=== PATIENT | male | born 1995 | race Caucasian/White ===

== ENCOUNTER 2025-02-08 00:58 | Inpatient (IN) | payer OTHER, SELFPAY ==
[2025-02-08 01:54] VITALS: BMI 31.1
--- NOTE | 2025-02-08 01:57 | HO.PSYEVENT ---
Event Note Date of Service: 02/08/25 Time Spent With Patient Time: Total time managing care of this patient today ____ minutes.
--- NOTE | 2025-02-08 05:47 | HO.PM.IMCN ---
History of Present Illness Data of Consult Service Date: 02/08/25 Requesting physician: Tana Mcdonnell Primary Care Provider: None Physician HPI Reason for consult: Medical H&P Patient is a 29-year-old male with no significant past medical history aside from bipolar, admitted to adult Psychiatry M5 for a manic episode with paranoia. It was reported by nursing staff that the [place] had been out of the country [place] 2 [place] and was kicked out, subsequently returning to [facility] and has been residing back and forth between his divorce parents houses. They have had difficulty with his mental health therefore he is now here for treatment. The patient has been very uncooperative with staff therefore medical history was difficult to obtain. He is currently denying any medical issues including chest pain, shortness of breath, nausea, vomiting, urinary symptoms or URI symptoms. Medical history was reviewed with patient, he reports no past medical history and does not take any medications. He also denies any smoking, alcohol or drug use. UTox from previous facility negative. Review of Systems Constitutional: Constitutional: Denies body ache(s), Denies chills, Denies fatigue, Denies fever(s), Denies headache(s) and Denies weakness Eyes: Eyes: Denies change in vision ENT: Denies headache(s), Denies nasal congestion and Denies sore throat Cardiovascular: Cardiovascular: Denies chest pain and Denies dyspnea Respiratory: Respiratory: Denies cough, Denies dyspnea and Denies wheezing Gastrointestinal: Gastrointestinal: Denies abdominal pain, Denies nausea and Denies vomiting Genitourinary: Genitourinary: Denies dysuria Musculoskeletal: Musculoskeletal: Denies myalgias Integumentary/Breasts: Skin/Breast: Denies rash Neurologic: Denies headache(s) and Denies weakness Psychiatric: Psychiatric: Reports as per HPI Endocrine: Endocrine: Denies fatigue Hematologic/Lymphatic: Hematologic/Lymphatic: Denies easy bleeding and Denies easy bruising Allergic/Immunologic: Allergic/Immunologic: Denies wheezing [facility] Medical History (Updated 02/08/25 @ 05:53 by Keke Hand PA-C) Class 1 obesity No pertinent past medical history Functional capacity: independent ambulation Social History Advance Directives: No Narrative: Patient denies smoking, alcohol or drug use Meds Allergies Allergy/AdvReac Type Severity Reaction Status Date / Time Penicillins Allergy Unknown Unknown Verified 02/08/25 01:52 lithium AdvReac Unknown Unknown Verified 02/08/25 01:52 Active Medications: Current Medications Acetaminophen (Acetaminophen 325 Mg Tablet) 650 mg PO Q6H PRN PRN Reason: Headache/Pain, Scale 1-10 Al Hydroxide/Mg Hydroxide (Magnesium Hydrox/Alum Hydrox 30 Ml Oral.Susp) 30 ml PO Q6H PRN PRN Reason: Heartburn/Nausea Hydroxyzine HCl (Hydroxyzine Hcl 25 Mg Tablet) 25 mg PO Q6H PRN PRN Reason: mild anxiety Lorazepam (Lorazepam 1 Mg Tablet) 1 mg PO Q6H PRN PRN Reason: severe anxiety/agitation Magnesium Hydroxide (Milk Of Magnesia 30 Ml Oral.Susp) 30 ml PO DAILY PRN PRN Reason: Constipation Nicotine Polacrilex (Nicotine Polacrilex 2 Mg Gum) 2 mg BUCCAL Q2H PRN PRN Reason: Nicotine Cravings Olanzapine (Olanzapine Odt 10 Mg Tab.Rapdis) 10 mg TRANSLINGU Q6H PRN PRN Reason: agitation Trazodone HCl (Trazodone Hcl 50 Mg Tablet) 50 mg PO BEDTIME MRX1 PRN PRN Reason: Insomnia Physical Exam Vital Signs and Narrative: Vital Signs: BMI result Body Mass Index 31.1 General: AOx3, no acute distress Resp: CTA bilaterally CVS: S1, S2, RRR GI: +BS, NT, no distention Skin: Warm, dry Neuro: Cranial nerves II-XII grossly intact bilaterally. Motor grossly intact bilaterally Extremities: No LE edema Psych: Appropriate affect Assessment and Plan (1) Medical clearance for psychiatric admission: Status: Acute (2) Class 1 obesity: Status: Acute Plan Patient is a 29-year-old male with no significant past medical history aside from bipolar, admitted to adult Psychiatry for a manic episode with paranoia. Patient's transfer for paperwork was reviewed, no significant past medical history, UTox negative. Patient has no current medical concerns. He has been uncooperative with nursing staff, history limited as patient is guarded. Mood disorder - plan per psych Class 1 obesity - BMI 31.1 - weight loss encouraged Thank you for allowing me to participate in the pt's care. Signing off. Please contact the medical team if any questions or concerns.
--- NOTE | 2025-02-08 06:06 | PC.ADMIT ---
A white, Yoruba-speaking, single, male, aged 29 years was [facility] 0115 as [facility] CV following referral from [facility] ED in [place]. Pt presented to ED on 02/07/25 with his father for evaluation due to concern for paranoid ideation and delusional thought content. [place] in the [place] 2 years returning on 01/20/24. Parents reported that pt stopped contacting family after about four months and they filed missing person reports. Pt was reported to be homeless for the past 6 moths. Pt had been living with mother, but pt had not been sleeping. Pt then was living with father. Pt has delusions that his parents are not his biological parents. Pt reportedly believes his actual mother is Ciara Awan. Pt has no medical issues or providers. Pt has a history of IPLOC for SI as a child. Pt's parents noted changes after pt's grandparents in 2020. Pt's parents are considering seeking guardianship. UTOX was negative and pt does not appear to be withdrawing from Etoh or substances. Pt was agitated and uncooperative upon arrival. Pt declined VS assessment and declined to allow for changeover in to [facility] or allow for skin assessment. Pt insisted that staff open the door and allow him to leave as holding him against his will was unlawful. Pt remained insistent that he be allowed to leave the hospital. Pt was offered a 3-day notice and also offered snacks and beverages which pt declined. Security was called at 0145 and they remained until 0215. OnCall provider was informed and orders were obtained for PO and IM medications. Pt did begin to settle allowing for removal of sneakers with laces and belt. Pt allowed pockets to bechecked by security, but pt retained his wallet. Pt remained sitting on the floor by the main entrance to the unit, but went to kitchen around 0330. Pt napped in kitchen for about an hour before going to his room for the first time and laying in his bed at 0630. Pt was seen by hospitalist, but declined to participate in admission.
[2025-02-08 06:58] VITALS: BP 146/72; PULSE 105; TEMP 36.3; O2SAT 100
[2025-02-08 08:12] VITALS: BP 140/90; PULSE 116; RESP 18; TEMP 37.1; O2SAT 98
--- NOTE | 2025-02-08 08:21 | HO.PSYADMNOT ---
HPI Date of Service: 02/08/25 Chief Complaint: Bipolar disorder, unspecified Sources of Information: patient interviewed, chart reviewed and crisis/core team assessment reviewed Additional Sources of Information: [facility] ED in [place] paperwork HPI Subjective Notes: Santamaria Warning and Conditional Voluntary Narrative: patient overall pretty guarded and evasive during interview today. Most of history based off documentation from [facility] ED in [place], for patient was transferred as a direct admission to [facility]. This paperwork included lots of collateral information from patient's mom. Overall this notes that patient was in the [place] for 2 years and [place] the states on 01/19/2025. He had claimed asylum in the [place] and was staying in a hotel and had cut off all family contact for the best part of 18 months. Was reportedly removed from the [place] stay with his mom 1st., up all night, unusual beliefs and erratic behavior, always had his bags packed like he was going somewhere and then stayed with his father for a short period. does not believe his biological parents are his parents and calls him by the 1st name i.e. Dutsin and Nataliia. Believes that Ciara Awan from the while family is his mother. They do note that mental state really decompensated after grandmother's passing in 2020 and grandfather approximately 6 months later. 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 Two inpatient episodes when younger with suicidal ideation. Labs unremarkable. Tox screen negative Discussed legal status. Signed a CV on admission. Ensured understanding of three-day notice and santamaria warning, should he pursue same. Past Psychiatric History: Minimal history from patient. He denies all symptoms any past history of mental health issues over being on medications or in hospital. As per parents/collateral documentation: They do note that mental state really decompensated after grandmother's passing in 2020 and grandfather approximately 6 months later. 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 Two inpatient episodes when younger with suicidal ideation. Medical Evaluation Reviewed: Hospitalist Vernellal Pending [facility] Medical History (Updated 02/08/25 @ 16:47 by Hermes Becerra MD) Class 1 obesity No pertinent past medical history Social History: largely limited history. 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 Recently tried to claim asylum in the [place] for 2 years and [place]25. Has been staying with biological parents since then, but also claims they are not his parents in the context of delusional beliefs. Single. No children. Denied legal issues. Substance History: Denied. Tox screen negative. Diagnostics Vital Signs (24Hr): Vital Signs - 24 hr 02/08/25 06:58 02/08/25 08:12 Temperature 97.4 F 98.8 F Pulse Rate 105 H 116 H Respiratory Rate 18 Blood Pressure 146/72 H 140/90 H Pulse Oximetry 100 98 Oxygen Delivery Method Room Air Room Air BMI result Body Mass Index 31.1 Meds/Allergies Meds Home Medications ?Medication ?Instructions ?Recorded ?Confirmed ?Type No Known Home Meds 02/08/25 02/08/25 History Allergies Allergies Allergy/AdvReac Type Severity Reaction Status Date / Time Penicillins Allergy Unknown Unknown Verified 02/08/25 01:52 lithium AdvReac Unknown Unknown Verified 02/08/25 01:52 Mental Status Exam Mental Status Exam Narrative: casually dressed. Minimal engagement. Self-care fair. Evasive and guarded. Is alert and oriented. Denies depression, SI HI. Does appear paranoid. Denies hallucinations. Insight and judgment poor Assessment & Plan Assessment & Plan (1) Psychosis: Status: Acute Code(s): F29 - Unspecified psychosis not due to a substance or known physiological condition Plan presents with clear delusional symptoms with unclear timeframe. No overt mood symptoms. No substance issues of note . [place] asylum [place] 2 years in the [place]. Delusional beliefs that Ciara Awan from the [facility] is his biological mother. Declining all medications or treatment . Will continue to try and establish rapport with ongoing evaluation and treatment plan accordingly. Patient educated on: diagnosis and medication risk/benefits Informed Consent: further education needed Reason for continued inpatient stay Substantial Risk for: inability to function Statement Statement: I have reviewed the history and physical and performed a pertinent examination on my patient. No changes have occurred unless specified. If the History and Physical was not performed prior to admission, the Hospitalist's service will be consulted for completing the admission physical. Time Spent With Patient Time: Total time managing care of this patient today ____ minutes.
[2025-02-08 20:00] VITALS: BP 111/53; PULSE 66; RESP 16; TEMP 36.8; O2SAT 97
--- NOTE | 2025-02-09 07:29 | P.PNPSI_ITS ---
Subjective Subjective Date of Service: 02/09/25 Reason For Visit: Bipolar disorder, unspecified Interim History: Met with pt. Discussed with nursing. More engaged but still guarded. Medical Scientific Liaison asked about Ciara Awan from the [facility] statements I said that so I could get a DNA test - would not answer directly when asked if he belived she was his mother. Still doesnt belive biological parents are his we dont look alike . Not willing to expand. Adamnt he does not need medications and denies depression, SI, HI etc.. Sleeping ok. IN milieu a little more. Eating ok. Attending Groups: No Review of Systems Acute medical concerns: No Review of Systems Review of Systems unremarkable Mental Status Exam Mental Status Exam Narrative: casually dressed. Minimal engagement. Self-care fair. Evasive and guarded. Is alert and oriented. Denies depression, SI HI. Does appear paranoid. Denies hallucinations. Insight and judgment poor Diagnostics Vital Signs (24Hr): Vital Signs - 24 hr 02/08/25 08:12 02/08/25 20:00 Temperature 98.8 F 98.2 F Pulse Rate 116 H 66 Respiratory Rate 18 16 Blood Pressure 140/90 H 111/53 L Pulse Oximetry 98 97 Oxygen Delivery Method Room Air Room Air BMI result Body Mass Index 31.1 Labs 02/09/25 07:18 Medications Medications Current Medications Acetaminophen (Acetaminophen 325 Mg Tablet) 650 mg PO Q6H PRN PRN Reason: Headache/Pain, Scale 1-10 Al Hydroxide/Mg Hydroxide (Magnesium Hydrox/Alum Hydrox 30 Ml Oral.Susp) 30 ml PO Q6H PRN PRN Reason: Heartburn/Nausea Hydroxyzine HCl (Hydroxyzine Hcl 25 Mg Tablet) 25 mg PO Q6H PRN PRN Reason: mild anxiety Lorazepam (Lorazepam 1 Mg Tablet) 1 mg PO Q6H PRN PRN Reason: severe anxiety/agitation Magnesium Hydroxide (Milk Of Magnesia 30 Ml Oral.Susp) 30 ml PO DAILY PRN PRN Reason: Constipation Nicotine Polacrilex (Nicotine Polacrilex 2 Mg Gum) 2 mg BUCCAL Q2H PRN PRN Reason: Nicotine Cravings Olanzapine (Olanzapine Odt 10 Mg Tab.Rapdis) 10 mg TRANSLINGU Q6H PRN PRN Reason: agitation Trazodone HCl (Trazodone Hcl 50 Mg Tablet) 50 mg PO BEDTIME MRX1 PRN PRN Reason: Insomnia Allergies Allergies Allergy/AdvReac Type Severity Reaction Status Date / Time Penicillins Allergy Unknown Unknown Verified 02/08/25 01:52 lithium AdvReac Unknown Unknown Verified 02/08/25 01:52 Assessment & Plan Assessment & Plan (1) Psychosis: Status: Acute Code(s): F29 - Unspecified psychosis not due to a substance or known physiological condition Plan presents with clear delusional symptoms with unclear timeframe. No overt mood symptoms. No substance issues of note . [place] asylum [place] 2 years in the [place]. Delusional beliefs that Ciara Awan from the [facility] [employer] is his biological mother. Declining all medications or treatment . Will continue to try and establish rapport with ongoing evaluation and treatment plan accordingly. 02/09:establish rapport and educate as much as patient will engage and treatment plan accorindgly Reason for continued inpatient stay Substantial Risk for: inability to function Time Spent With Patient Time: Total time managing care of this patient today ____ minutes.
[2025-02-09 08:11] LABS: Albumin Level 4.5 g/dL (3.5-5.0); Alkaline Phosphatase 82 U/L (39-117); Anion Gap 11 (12-20); Aspartate Amino Transferase 35 U/L (5-37); Blood Urea Nitrogen 19 mg/dL (9-16); Calcium 9.9 mg/dL (8.4-10.2); Carbon Dioxide 29 mmol/L (22-29); Chloride 106 mmol/L (96-108); Cholesterol 359 mg/dL (<200); Creatinine Clr Calc Pharmacy 137.6; Estimated Glomerular Filt Rate > 60; HDL Cholesterol 47 mg/dL (>40); Potassium 4.4 mmol/L (3.3-5.1); Sodium 142 mmol/L (135-145); Total Protein 7.3 g/dL (6.5-8.0); Triglycerides 167 mg/dL (<150)
[2025-02-09 08:14] LABS: Hemoglobin A1C 130.0748 umol/L; Total Hemoglobin (HGBA1C) 4412.2296 umol/L
[2025-02-09 08:21] LABS: Thyroid Stimulating Hormone 2.35 uIU/mL (0.32-4.0)
[2025-02-09 08:27] LABS: Alanine Aminotransferase 116 U/L (0-40)
[2025-02-09 08:38] VITALS: BP 119/60; PULSE 70; RESP 18; TEMP 36.1; O2SAT 97
[2025-02-09 20:00] VITALS: BP 132/71; PULSE 98; TEMP 36.3; O2SAT 97
[2025-02-10 08:00] VITALS: BP 126/69; PULSE 73; RESP 16; TEMP 36.4; O2SAT 98
--- NOTE | 2025-02-10 11:04 | P.PNPSI_ITS ---
Subjective Subjective Date of Service: 02/10/25 Reason For Visit: Bipolar disorder, unspecified Interim History: Met with pt. Discussed with nursing. More engaged but still guarded. Minimal engagement and declined wanting to speak today but eager for discharge and still adamnt he does not need medications and denies depression, SI, HI etc.. Sleeping ok. Eating ok. Medication Compliance: No Attending Groups: No Review of Systems Acute medical concerns: No Review of Systems Review of Systems unremarkable Mental Status Exam Mental Status Exam Narrative: casually dressed. Minimal engagement. Self-care fair. Evasive and guarded. Is alert and oriented. Denies depression, SI HI. Does appear paranoid. Denies hallucinations. Insight and judgment poor Diagnostics Vital Signs (24Hr): Vital Signs - 24 hr 02/09/25 20:00 02/10/25 08:00 Temperature 97.4 F 97.5 F Pulse Rate 98 73 Respiratory Rate 16 Blood Pressure 132/71 126/69 Pulse Oximetry 97 98 Oxygen Delivery Method Room Air BMI result Body Mass Index 31.1 Labs 02/09/25 07:18 Labs: Laboratory Results - last 48 hr 02/09/25 02/09/25 07:17 07:18 Sodium 142 Potassium 4.4 Chloride 106 Carbon Dioxide 29 Anion Gap 11 L BUN 19 H Creatinine 0.84 Estim Creat Clear Calc 137.6 Estimated GFR > 60 Random Glucose 90 Estimat Average Glucose 91 Hemoglobin A1c % 4.8 Calcium 9.9 Total Bilirubin 0.7 AST 35 ALT 116 H Alkaline Phosphatase 82 Total Protein 7.3 Albumin 4.5 Triglycerides 167 H Cholesterol 359 H LDL Cholesterol, Calc 279 H HDL Cholesterol 47 TSH 2.35 Medications Medications Current Medications Acetaminophen (Acetaminophen 325 Mg Tablet) 650 mg PO Q6H PRN PRN Reason: Headache/Pain, Scale 1-10 Al Hydroxide/Mg Hydroxide (Magnesium Hydrox/Alum Hydrox 30 Ml Oral.Susp) 30 ml PO Q6H PRN PRN Reason: Heartburn/Nausea Hydroxyzine HCl (Hydroxyzine Hcl 25 Mg Tablet) 25 mg PO Q6H PRN PRN Reason: mild anxiety Lorazepam (Lorazepam 1 Mg Tablet) 1 mg PO Q6H PRN PRN Reason: severe anxiety/agitation Magnesium Hydroxide (Milk Of Magnesia 30 Ml Oral.Susp) 30 ml PO DAILY PRN PRN Reason: Constipation Nicotine Polacrilex (Nicotine Polacrilex 2 Mg Gum) 2 mg BUCCAL Q2H PRN PRN Reason: Nicotine Cravings Olanzapine (Olanzapine Odt 10 Mg Tab.Rapdis) 10 mg TRANSLINGU Q6H PRN PRN Reason: agitation Trazodone HCl (Trazodone Hcl 50 Mg Tablet) 50 mg PO BEDTIME MRX1 PRN PRN Reason: Insomnia Allergies Allergies Allergy/AdvReac Type Severity Reaction Status Date / Time Penicillins Allergy Unknown Unknown Verified 02/08/25 01:52 lithium AdvReac Unknown Unknown Verified 02/08/25 01:52 Assessment & Plan Assessment & Plan (1) Psychosis: Status: Acute Code(s): F29 - Unspecified psychosis not due to a substance or known physiological condition Plan presents with clear delusional symptoms with unclear timeframe. No overt mood symptoms. No substance issues of note . [place] asylum [place] 2 years in the [place]. Delusional beliefs that Ciara Awan from [facility] is his biological mother. Declining all medications or treatment . Will continue to try and establish rapport with ongoing evaluation and treatment plan accordingly. 7/5:establish rapport and educate as much as patient will engage and treatment plan accorindgly. Educated ref 3 day notice process and Santamaria warning should they pursue same. 7/6: Still refusing medications being ordered. Team might consider revoking CV. Reason for continued inpatient stay Substantial Risk for: inability to function Time Spent With Patient Time: Total time managing care of this patient today ____ minutes.
[2025-02-10 20:00] VITALS: BP 145/72; PULSE 79; RESP 16; TEMP 36.4; O2SAT 98
[2025-02-11 08:00] VITALS: BP 115/76; PULSE 73; RESP 16; TEMP 36.8; O2SAT 97
[2025-02-11 08:32] LABS: Vitamin B12 421 pg/mL (200-900)
--- NOTE | 2025-02-11 09:38 | P.PNPSI_ITS ---
Subjective Subjective Date of Service: 02/11/25 Reason For Visit: Bipolar disorder, unspecified Subjective Notes: Santamaria Warning (gave 02/11/25) and 3 Day Interim History: met with patient; discussed with team; reviewed chart; santamaria warning given residential mortgage underwriter asked hx: pt vague, guarded. He says he went to [place] was [place]...from [place]... He says a Federal napper grinder told me I had to be out of here [[facility]] he then said that a helicopter pilot instructor came up to him and told him. Patient says that he was living in the in a detention and then ended up living in a tent. He says that he decided to come home on his own so he went to the airport... He then said that a ticket was bought for him by Nataliia and/or Red and/or Dustin, Nataliia being the woman Who says she is my mother.. And Dustin the man who says he is my father... Red is Nataliia's . Patient says that for years he has been concerned that Nataliia is not his biological mother; he says he has asked for a DNA test but it has not been done. Patient reports that Red picked him up from the airport, took him back to [place]; patient said I was walking around... And minding his own business and he does not know why he was brought to the hospital; he says that Dustin tricked him. Patient expressed consternation when residential mortgage underwriter asked his belief about Ciara Awan being his mother... And asked if some agency had contacted this residential mortgage underwriter about it. He said he was asking for DNA test regarding Ciara Awan but then said no he does not believe Ciara Awan is his mother end of story and did not want to talk about this anymore. Patient denies any drug or alcohol use; denies any AVH; denies any SI or HI; denies any depression Patient gave permission for team to contact his family, Red Chan Melissa and gave phone numbers Mental Status Exam Mental Status Exam Narrative: Pt is alert and oriented; behavior is guarded, superficially cooperative, calm; patient is not in distress; dressed in casual attire, unkempt; mood is described as good though affect constricted; eye contact appropriate; Speech is normal rate, volume and prosody and not pressured; no psychomotor agitation/retardation present; thought process is organized and goal directed; Thought content is on wrong fully hospitalized; paranoid delusional thoughts; denies any SI/HI. Denies AVH though patient seems internally preoccupied Patients insight and judgment impaired. Diagnostics Vital Signs (24Hr): Vital Signs - 24 hr 02/10/25 20:00 Temperature 97.6 F Pulse Rate 79 Respiratory Rate 16 Blood Pressure 145/72 H Pulse Oximetry 98 Oxygen Delivery Method Room Air BMI result Body Mass Index 31.1 Labs 02/09/25 07:18 Labs: Laboratory Results - last 48 hr 02/11/25 07:38 Vitamin B12 421 Medications Medications Current Medications Acetaminophen (Acetaminophen 325 Mg Tablet) 650 mg PO Q6H PRN PRN Reason: Headache/Pain, Scale 1-10 Al Hydroxide/Mg Hydroxide (Magnesium Hydrox/Alum Hydrox 30 Ml Oral.Susp) 30 ml PO Q6H PRN PRN Reason: Heartburn/Nausea Hydroxyzine HCl (Hydroxyzine Hcl 25 Mg Tablet) 25 mg PO Q6H PRN PRN Reason: mild anxiety Lorazepam (Lorazepam 1 Mg Tablet) 1 mg PO Q6H PRN PRN Reason: severe anxiety/agitation Magnesium Hydroxide (Milk Of Magnesia 30 Ml Oral.Susp) 30 ml PO DAILY PRN PRN Reason: Constipation Nicotine Polacrilex (Nicotine Polacrilex 2 Mg Gum) 2 mg BUCCAL Q2H PRN PRN Reason: Nicotine Cravings Olanzapine (Olanzapine Odt 10 Mg Tab.Rapdis) 10 mg TRANSLINGU Q6H PRN PRN Reason: agitation Trazodone HCl (Trazodone Hcl 50 Mg Tablet) 50 mg PO BEDTIME MRX1 PRN PRN Reason: Insomnia Allergies Allergies Allergy/AdvReac Type Severity Reaction Status Date / Time Penicillins Allergy Unknown Unknown Verified 02/08/25 01:52 lithium AdvReac Unknown Unknown Verified 02/08/25 01:52 Assessment & Plan Assessment & Plan (1) Psychosis: Status: Acute Code(s): F29 - Unspecified psychosis not due to a substance or known physiological condition Plan HPI: patient overall pretty guarded and evasive during interview today. Most of history based off documentation from [facility] ED in [place], for patient was transferred as a direct admission to [facility]. This paperwork included lots of collateral information from patient's mom. Overall this notes that patient was in the [place] for 2 years and returned to the states on 01/19/2025. He had [place] asylum in [place] and was staying in a hotel and had cut off all family contact for the best part of 18 months. Was reportedly removed from the [place] stay with his mom 1st., up all night, unusual beliefs and erratic behavior, always had his bags packed like he was going somewhere and then stayed with his father for a short period. does not believe his biological parents are his parents and calls him by the 1st name i.e. Dustin and Nataliia. Believes that Ciara Awan from the while family is his mother. They do note that mental state really decompensated after grandmother's passing in 2020 and grandfather approximately 6 months later. 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 Two inpatient episodes when younger with suicidal ideation. Formulation: presents with clear delusional symptoms with unclear timeframe. No overt mood symptoms. No substance issues of note . [place] asylum [place] 2 years in the [place]. Delusional beliefs that Ciara Awan from the royal family is his biological mother. Declining all medications or treatment . Will continue to try and establish rapport with ongoing evaluation and treatment plan accordingly. 02/09:establish rapport and educate as much as patient will engage and treatment plan accorindgly. Educated ref 3 day notice process and Santamaria warning should they pursue same. 02/10: Still refusing medications being ordered. Team might consider revoking CV. 02/11 residential mortgage underwriter asked hx: pt vague, guarded. He says he went to because [place] was [place]from [place] He says a Federal napper grinder told me I had to be out of here [[place]] he then said that a helicopter pilot instructor came up to him and told him. Patient says that he [place] living [place] the [place] in a detention and then ended up living in a tent. He says that he decided to come home on his own so he went to the airport... He then said that a ticket was bought for him by Nataliia and/or Red and/or Dustin, Nataliia being the woman Who says she is my mother.. And Dustin the man who says he is my father... Red is Nataliia's . Patient says that for years he has been concerned that Nataliia is not his biological mother; he says he has asked for a DNA test but it has not been done. Patient reports that Red picked him up from the airport, took him back to [place]; patient said I was walking around... And minding his own business and he does not know why he was brought to the hospital; he says that Dustin tricked him. Patient expressed consternation when residential mortgage underwriter asked his belief about Ciara Awan being his mother... And asked if some agency had contacted this residential mortgage underwriter about it. He said he was asking for DNA test regarding Ciara Awan but then said no he does not believe Ciara Awan is his mother end of story and did not want to talk about this anymore. Patient does not want to be in the hospital; discussed 3 day notice which he went and signed; does not feel the need or want any medication Patient denies any drug or alcohol use; denies any AVH; denies any SI or HI; denies any depression Patient gave permission for team to contact his family, Red ChanNataliia and gave phone numbers Plan: 3 day Q 15 minute checks Patient does not want medication Patient has given permission for team to contact family for collateral Patient educated on: diagnosis Informed Consent: does not understand Reason for continued inpatient stay Substantial Risk for: inability to function Time Spent With Patient Time: Total time managing care of this patient today ____ minutes.
[2025-02-11 20:00] VITALS: BP 130/69; PULSE 95; RESP 16; TEMP 36.7; O2SAT 98
[2025-02-12 07:57] VITALS: BP 122/74; PULSE 68; TEMP 36.6; O2SAT 97
--- NOTE | 2025-02-12 11:38 | P.PNPSI_ITS ---
Subjective Subjective Date of Service: 02/12/25 Reason For Visit: Bipolar disorder, unspecified Interim History: met with patient; discussed with team; talked with patient's mother, Nataliia Patient remains guarded; staff reports did not sleep much last night or the night before though patient says he has been sleeping fine. Lumber Marker asked about activities while in [place]. Patient said he mostly just stayed in the half-way where he was staying and did not do any site-seeing or leave the vicinity much; said he sometimes helped load at a grocery store for food. Says he claimed asylum and there were government workers that would check on him, make sure he had food. Lumber Marker tried to discuss details regarding coming back to the states but patient would not discuss. Says he is glad to be back in that it states; has nowhere else to go for now so plans to go back to Nataliia's house; otherwise he said he would like to move back down self. Patient with irritable edge saying he has no idea why he is hospitalized; technical proposal writer offered to explain but patient said he did not want technical proposal writer to because I do not think all like your response... Eventually however he did ask again why he was hospitalized and as technical proposal writer started to explain patient said are we done and that he no longer wanted to talk and left the room Lumber Marker and social science analyst spoke with Nataliia, patient's mother: Mental Status Exam Mental Status Exam Narrative: Pt is alert and oriented; behavior is guarded, superficially cooperative, calm; patient is not in distress; dressed in casual attire, unkempt; mood is described as good though affect constricted; eye contact appropriate; Speech is normal rate, volume and prosody and not pressured; no psychomotor agitation/retardation present; thought process is organized and goal directed; Thought content is on wrong fully hospitalized; paranoid delusional thoughts; denies any SI/HI. Denies AVH though patient seems internally preoccupied Patients insight and judgment impaired. Diagnostics Vital Signs (24Hr): Vital Signs - 24 hr 02/11/25 20:00 02/12/25 07:57 Temperature 98.1 F 97.9 F Pulse Rate 95 68 Respiratory Rate 16 Blood Pressure 130/69 122/74 Pulse Oximetry 98 97 Oxygen Delivery Method Room Air Room Air BMI result Body Mass Index 31.1 Labs 02/09/25 07:18 Labs: Laboratory Results - last 48 hr 02/11/25 07:38 Vitamin B12 421 Medications Medications Current Medications Acetaminophen (Acetaminophen 325 Mg Tablet) 650 mg PO Q6H PRN PRN Reason: Headache/Pain, Scale 1-10 Al Hydroxide/Mg Hydroxide (Magnesium Hydrox/Alum Hydrox 30 Ml Oral.Susp) 30 ml PO Q6H PRN PRN Reason: Heartburn/Nausea Hydroxyzine HCl (Hydroxyzine Hcl 25 Mg Tablet) 25 mg PO Q6H PRN PRN Reason: mild anxiety Lorazepam (Lorazepam 1 Mg Tablet) 1 mg PO Q6H PRN PRN Reason: severe anxiety/agitation Magnesium Hydroxide (Milk Of Magnesia 30 Ml Oral.Susp) 30 ml PO DAILY PRN PRN Reason: Constipation Nicotine Polacrilex (Nicotine Polacrilex 2 Mg Gum) 2 mg BUCCAL Q2H PRN PRN Reason: Nicotine Cravings Olanzapine (Olanzapine Odt 10 Mg Tab.Rapdis) 10 mg TRANSLINGU Q6H PRN PRN Reason: agitation Trazodone HCl (Trazodone Hcl 50 Mg Tablet) 50 mg PO BEDTIME MRX1 PRN PRN Reason: Insomnia Allergies Allergies Allergy/AdvReac Type Severity Reaction Status Date / Time Penicillins Allergy Unknown Unknown Verified 02/08/25 01:52 lithium AdvReac Unknown Unknown Verified 02/08/25 01:52 Assessment & Plan Assessment & Plan (1) Psychosis: Status: Acute Code(s): F29 - Unspecified psychosis not due to a substance or known physiological condition Plan HPI: patient overall pretty guarded and evasive during interview today. Most of history based off documentation from [facility] ED in [place], for patient was transferred as a direct admission to [facility]. This paperwork included lots of collateral information from patient's mom. Overall this notes that patient was in the [place] for 2 years and returned to the states on 01/19/2025. [place] and was staying in a hotel and had cut off all family contact for the best part of 18 months. Was reportedly removed from the [place] stay with his mom 1st., up all night, unusual beliefs and erratic behavior, always had his bags packed like he was going somewhere and then stayed with his father for a short period. does not believe his biological parents are his parents and calls him by the 1st name i.e. Dustin and Nataliia. Believes that Ciara Awan from the while family is his mother. They do note that mental state really decompensated after grandmother's passing in 2020 and grandfather approximately 6 months later. 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 Two inpatient episodes when younger with suicidal ideation. Formulation: presents with clear delusional symptoms with unclear timeframe. No overt mood symptoms. No substance issues of note . [place] asylum [place] 2 years in the [place]. Delusional beliefs that Ciara Awan from the royal family is his biological mother. Declining all medications or treatment . Will continue to try and establish rapport with ongoing evaluation and treatment plan accordingly. 02/09:establish rapport and educate as much as patient will engage and treatment plan accorindgly. Educated ref 3 day notice process and Santamaria warning should they pursue same. 02/10: Still refusing medications being ordered. Team might consider revoking CV. 02/11 technical proposal writer asked hx: pt vague, guarded. He says he went to because [place] was [place]from [place] He says a Federal payroll secretary told me I had to be out of here [[facility]] he then said that a copy holder came up to him and told him. Patient says that he was living in the in a half-way and then ended up living in a tent. He says that he decided to come home on his own so he went to the airport... He then said that a ticket was bought for him by Nataliia and/or Red and/or Dustin, Nataliia being the woman Who says she is my mother.. And Dustin the man who says he is my father... Red is Nataliia's . Patient says that for years he has been concerned that Nataliia is not his biological mother; he says he has asked for a DNA test but it has not been done. Patient reports that Red picked him up from the airport, took him back to [place]; patient said I was walking around... And minding his own business and he does not know why he was brought to the hospital; he says that Dustin tricked him. Patient expressed consternation when technical proposal writer asked his belief about Ciara Awan being his mother... And asked if some agency had contacted this technical proposal writer about it. He said he was asking for DNA test regarding Ciara Awan but then said no he does not believe Ciara Awan is his mother end of story and did not want to talk about this anymore. Patient does not want to be in the hospital; discussed 3 day notice which he went and signed; does not feel the need or want any medication Patient denies any drug or alcohol use; denies any AVH; denies any SI or HI; denies any depression Patient gave permission for team to contact his family, DustinRed Nataliia and gave phone numbers 02/12 Patient remains guarded; staff reports did not sleep much last night or the night before though patient says he has been sleeping fine. Lumber Marker asked about activities while in [place]. Patient said he mostly just stayed in the half-way where he was staying and did not do any site-seeing or leave the vicinity much; said he sometimes helped load at a grocery store for food. Says he claimed asylum and there were government workers that would check on him, make sure he had food. Lumber Marker tried to discuss details regarding coming back to the states but patient would not discuss. Says he is glad to be back in that it states; has nowhere else to go for now so plans to go back to Nataliia's house; otherwise he said he would like to move back down self. Patient with irritable edge saying he has no idea why he is hospitalized; technical proposal writer offered to explain but patient said he did not want technical proposal writer to because I do not think all like your response... Eventually however he did ask again why he was hospitalized and as technical proposal writer started to explain patient said are we done and that he no longer wanted to talk and left the room Collateral report obtained from patient's mother (see below): Plan: 3 day Q 15 minute checks Patient does not want medication Patient has given permission for team to contact family for collateral Collateral: -dx w/ bipolar as child and on meds from 4 years old until 17 yo mother reports that her around patient living in [place]; patient called his mother and said people after him, saying he's a pediophile, that someone has a gun... Saying i need to leave [place]. Mom went down to get and brought him back home. However once he was home he called the police and said his mom was poisoning him w/ food and police showed up...went for psych admission and was dx with delusiuinal paranoanoia; patient did not take medications post discharge or follow up and thus forward maintain that Nataliia was not his real mother. About a year and a half ago Patient told his mother he wanted to go to the [place] to see whom he believed were his real parents, Ciara Awan and Prince Leblanc. Patient left; when he got there he claimed asylum and so was given some resources. There was some contact at 1st but soon there was no contact at all for about a year and patient's mother filed a missing person report with the [place] embassy there. Recently delegates from the [place] contacted her and deported him back to the [place] states. Her Red picked him up and brought him back home to [place]. While he was home the past weeks he was pacing the house, not sleeping and eating nonstop, eating literally all the groceries that she bought in 1 sitting, taking 5 showers a day and continually saying you are not my mother... Patient also expressed anger at her because his car was no longer. Since he was gone and not making car payments it was repossessed however he did not accept this explanation and accused her of scratching his car. Patient insisted that he had money in the bank though he had none. His father Dustin came to get him and took him to the hospital. Med trials (mother is not sure other than following: zoloft: tried to jump out of moving vehicle [place]: Severe Adverse effect Seroquel: Not sure Patient educated on: diagnosis and medication risk/benefits Informed Consent: does not understand Reason for continued inpatient stay Substantial Risk for: inability to function Time Spent With Patient Time: Total time managing care of this patient today ____ minutes.
[2025-02-12 20:00] VITALS: BP 99/55; PULSE 100; RESP 16; TEMP 36.6; O2SAT 97
[2025-02-13 07:59] VITALS: BP 115/61; PULSE 63; TEMP 36.4; O2SAT 97
--- NOTE | 2025-02-13 15:24 | HO.PSYCHPN ---
Subjective Subjective Date of Service: 03/13/25 Reason For Visit: Bipolar disorder, unspecified Subjective Notes: Mejia Warning (Again gave mejia warning) Interim History: Met with patient; discussed with team Patient irritable on approach. Senior Commissary Agent and nephrology social worker explained concern for his well-being, confused thinking which patient adamantly denied. Gave mejia warning again. Patient insisted he would not take medication, did not need any and wanted discharge. Patient told documentation writer and nephrology social worker to leave the room. -staff reports 2-3 hours of sleep Mental Status Exam Mental Status Exam Narrative: Pt is alert and oriented; behavior is guarded, superficially cooperative, calm; patient is not in distress; dressed in casual attire, unkempt; mood is described as irritable and affect constricted; eye contact intense; Speech is normal rate, volume and prosody and not pressured; no psychomotor agitation/retardation present; thought process is organized and goal directed; Thought content is on wrong fully hospitalized; paranoid delusional thoughts; denies any SI/HI. Denies AVH though patient seems internally preoccupied Patients insight and judgment impaired. Diagnostics Vital Signs (24Hr): Vital Signs - 24 hr 02/12/25 20:00 02/13/25 07:59 Temperature 97.9 F 97.5 F Pulse Rate 100 63 Respiratory Rate 16 Blood Pressure 99/55 L 115/61 Pulse Oximetry 97 97 Oxygen Delivery Method Room Air Room Air BMI result Body Mass Index 31.1 Labs 02/09/25 07:18 Medications Medications Current Medications Acetaminophen (Acetaminophen 325 Mg Tablet) 650 mg PO Q6H PRN PRN Reason: Headache/Pain, Scale 1-10 Al Hydroxide/Mg Hydroxide (Magnesium Hydrox/Alum Hydrox 30 Ml Oral.Susp) 30 ml PO Q6H PRN PRN Reason: Heartburn/Nausea Hydroxyzine HCl (Hydroxyzine Hcl 25 Mg Tablet) 25 mg PO Q6H PRN PRN Reason: mild anxiety Magnesium Hydroxide (Milk Of Magnesia 30 Ml Oral.Susp) 30 ml PO DAILY PRN PRN Reason: Constipation Nicotine Polacrilex (Nicotine Polacrilex 2 Mg Gum) 2 mg BUCCAL Q2H PRN PRN Reason: Nicotine Cravings Olanzapine (Olanzapine Odt 10 Mg Tab.Rapdis) 10 mg TRANSLINGU Q6H PRN PRN Reason: agitation Risperidone (Risperidone 1 Mg Tablet) 1 mg PO BID TRICIA Trazodone HCl (Trazodone Hcl 50 Mg Tablet) 50 mg PO BEDTIME MRX1 PRN PRN Reason: Insomnia Allergies Allergies Allergy/AdvReac Type Severity Reaction Status Date / Time Penicillins Allergy Unknown Unknown Verified 02/08/25 01:52 lithium AdvReac Unknown Unknown Verified 02/08/25 01:52 Assessment & Plan Assessment & Plan (1) Psychosis: Status: Acute Code(s): F29 - Unspecified psychosis not due to a substance or known physiological condition Plan HPI: patient overall pretty guarded and evasive during interview today. Most of history based off documentation from [facility] ED in [place], for patient was transferred as a direct admission to [facility]. This paperwork included lots of collateral information from patient's mom. Overall this notes that patient was in the [place] for 2 years and returned to the states on 01/19/2025. He had [place] asylum [place] and was staying in a hotel and had cut off all family contact for the best part of 18 months. Was reportedly removed from the [place] stay with his mom 1st., up all night, unusual beliefs and erratic behavior, always had his bags packed like he was going somewhere and then stayed with his father for a short period. does not believe his biological parents are his parents and calls him by the 1st name i.e. Dustin and Nataliia. Believes that Ciara Awan from the while family is his mother. They do note that mental state really decompensated after grandmother's passing in 2020 and grandfather approximately 6 months later. 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 Two inpatient episodes when younger with suicidal ideation. Formulation: presents with clear delusional symptoms with unclear timeframe. No overt mood symptoms. No substance issues of note . [place] asylum [place] 2 [place] in the [place]. Delusional beliefs that Ciara Awan from the royal family is his biological mother. Declining all medications or treatment . Will continue to try and establish rapport with ongoing evaluation and treatment plan accordingly. 7/5:establish rapport and educate as much as patient will engage and treatment plan accorindgly. Educated ref 3 day notice process and Mejia warning should they pursue same. 7/6: Still refusing medications being ordered. Team might consider revoking CV. 02/11 documentation writer asked hx: pt vague, guarded. He says he went to because i was illeg[place]from [place] He says a Federal piano assembler told me I had to be out of here [[facility]] he then said that a copy machine operator came up to him and told him. Patient says that he was living [place] in a halfway and then ended up living in a tent. He says that he decided to come home on his own so he went to the airport... He then said that a ticket was bought for him by Nataliia and/or Red and/or Dustin, Nataliia being the woman Who says she is my mother.. And Dustin the man who says he is my father... Red is Nataliia's . Patient says that for years he has been concerned that Nataliia is not his biological mother; he says he has asked for a DNA test but it has not been done. Patient reports that Red picked him up from the airport, took him back to [place]; patient said I was walking around... And minding his own business and he does not know why he was brought to the hospital; he says that Dustin tricked him. Patient expressed consternation when documentation writer asked his belief about Ciara Awan being his mother... And asked if some agency had contacted this documentation writer about it. He said he was asking for DNA test regarding Ciara Awan but then said no he does not believe Ciara Awan is his mother end of story and did not want to talk about this anymore. Patient does not want to be in the hospital; discussed 3 day notice which he went and signed; does not feel the need or want any medication Patient denies any drug or alcohol use; denies any AVH; denies any SI or HI; denies any depression Patient gave permission for team to contact his family, Red Chan Melissa and gave phone numbers 02/12 Patient remains guarded; staff reports did not sleep much last night or the night before though patient says he has been sleeping fine. Senior Commissary Agent asked about activities while in [place]. Patient said he mostly just stayed in the halfway where he was staying and did not do any site-seeing or leave the vicinity much; said he sometimes helped load at a grocery store for food. Says he claimed asylum and there were government workers that would check on him, make sure he had food. Senior Commissary Agent tried to discuss details regarding coming back to the states but patient would not discuss. Says he is glad to be back in that it states; has nowhere else to go for now so plans to go back to Nataliia's house; otherwise he said he would like to move back down self. Patient with irritable edge saying he has no idea why he is hospitalized; documentation writer offered to explain but patient said he did not want documentation writer to because I do not think all like your response... Patient insisted that he was in a state hospital; did not seem to believe that documentation writer was a psychiatrist and kept referring to some numbers or statutes and improper evaluation. Eventually however he did ask again why he was hospitalized and as documentation writer started to explain patient said are we done and that he no longer wanted to talk and left the room Collateral report obtained from patient's mother (see below): 02/13 remains guarded, without any insight at all demanding discharge. Senior Commissary Agent discussed need for treatment including medication which patient refuses Impression: Patient remains at risk for not being able to take care himself in the community and harm coming from poor judgment as he is suffering from paranoid delusions and is without any insight at all. Patient's delusional thinking resulted in him becoming a missing person in a foreign country. He is only backing in the states because delegates in the [place] found patient (from mother filing missing person report there) and deported him back to [facility]. Without medication patient will remain unable to take care of himself in the community. Will file for involuntary commitment Plan: 3 day; will file for involuntary commitment Q 15 minute checks Patient does not want medication Patient has given permission for team to contact family for collateral Collateral: -dx w/ bipolar as child and on meds from 4 years old until 17 yo mother reports that her around patient living in [place]; patient called his mother and said people after him, saying he's a pediophile, that someone has a gun... Saying i need to leave [place]. Mom went down to get and brought him back home. However once he was home he called the police and said his mom was poisoning him w/ food and police showed up...went for psych admission and was dx with delusiuinal paranoanoia; patient did not take medications post discharge or follow up and thus forward maintain that Nataliia was not his real mother. About a year and a half ago Patient told his mother he wanted to go [place] to see whom he believed were his real parents, Ciara Awan and Prince Leblanc. Patient left; when he got there he claimed asylum and so was given some resources. There was some contact at 1st but soon there was no contact at all for about a year and patient's mother filed a missing person report with the [place] embassy there. Recently delegates from the [place] contacted her and deported him back to the [place] states. Her Red picked him up and brought him back home to [place]. While he was home the past weeks he was pacing the house, not sleeping and eating nonstop, eating literally all the groceries that she bought in 1 sitting, taking 5 showers a day and continually saying you are not my mother... Patient also expressed anger at her because his car was no longer. Since he was gone and not making car payments it was repossessed however he did not accept this explanation and accused her of scratching his car. Patient insisted that he had money in the bank though he had none. His father Dustin came to get him and took him to the hospital. Med trials (mother is not sure other than following: zoloft: tried to jump out of moving vehicle [place]: Severe Adverse effect Seroquel: Not sure Patient educated on: diagnosis and medication risk/benefits Informed Consent: does not understand Reason for continued inpatient stay Substantial Risk for: inability to function Time Spent With Patient Time: Total time managing care of this patient today ____ minutes.
[2025-02-13 20:00] VITALS: BP 121/56; PULSE 84; RESP 16; TEMP 36.4; O2SAT 98
[2025-02-14 09:06] VITALS: BP 117/63; PULSE 93; RESP 18; TEMP 36.5; O2SAT 96
[2025-02-14 19:44] VITALS: BP 99/64; PULSE 76; TEMP 36.8; O2SAT 93
--- NOTE | 2025-02-14 22:26 | P.PNPSI_ITS ---
Subjective Subjective Date of Service: 02/14/25 Reason For Visit: Bipolar disorder, unspecified Interim History: met with pt; discussed with team; talked w/ mother pt remains isolative; lying in bed, politely declined to talk with aligner typewriter. Chemical Compounder Helper briefly explained why medication ordered. pts' mother unable to get info from pharmacy regarding hx of meds; asked aligner typewriter to call pharmacy Mental Status Exam Mental Status Exam Narrative: Pt is alert and oriented; behavior is guarded, superficially polite; non- cooperative, calm; patient is not in distress; dressed in casual attire, unkempt; mood is described as irritable and affect constricted; eye contact intense; Speech is normal rate, volume and prosody and not pressured; no psychomotor agitation/retardation present; thought process is organized and goal directed; Thought content is on wrong fully hospitalized; paranoid delusional thoughts; denies any SI/HI. Denies AVH though patient seems internally preoccupied Patients insight and judgment impaired. Diagnostics Vital Signs (24Hr): Vital Signs - 24 hr 02/14/25 09:06 02/14/25 19:44 Temperature 97.7 F 98.2 F Pulse Rate 93 76 Respiratory Rate 18 Blood Pressure 117/63 99/64 Pulse Oximetry 96 93 Oxygen Delivery Method Room Air Room Air BMI result Body Mass Index 31.1 Labs 02/09/25 07:18 Medications Medications Current Medications Acetaminophen (Acetaminophen 325 Mg Tablet) 650 mg PO Q6H PRN PRN Reason: Headache/Pain, Scale 1-10 Al Hydroxide/Mg Hydroxide (Magnesium Hydrox/Alum Hydrox 30 Ml Oral.Susp) 30 ml PO Q6H PRN PRN Reason: Heartburn/Nausea Hydroxyzine HCl (Hydroxyzine Hcl 25 Mg Tablet) 25 mg PO Q6H PRN PRN Reason: mild anxiety Magnesium Hydroxide (Milk Of Magnesia 30 Ml Oral.Susp) 30 ml PO DAILY PRN PRN Reason: Constipation Nicotine Polacrilex (Nicotine Polacrilex 2 Mg Gum) 2 mg BUCCAL Q2H PRN PRN Reason: Nicotine Cravings Olanzapine (Olanzapine Odt 10 Mg Tab.Rapdis) 10 mg TRANSLINGU Q6H PRN PRN Reason: agitation Risperidone (Risperidone 1 Mg Tablet) 1 mg PO BID TRICIA Last Admin: 02/14/25 20:34 Dose: Not Given Trazodone HCl (Trazodone Hcl 50 Mg Tablet) 50 mg PO BEDTIME MRX1 PRN PRN Reason: Insomnia Allergies Allergies Allergy/AdvReac Type Severity Reaction Status Date / Time Penicillins Allergy Unknown Unknown Verified 02/08/25 01:52 lithium AdvReac Unknown Unknown Verified 02/08/25 01:52 Assessment & Plan Assessment & Plan (1) Psychosis: Status: Acute Code(s): F29 - Unspecified psychosis not due to a substance or known physiological condition Plan HPI: patient overall pretty guarded and evasive during interview today. Most of history based off documentation from [facility] ED in [place], for patient was transferred as a direct admission to [facility]. This paperwork included lots of collateral information from patient's mom. Overall this notes that patient was in the [place] for 2 years and returned to the states on 01/19/2025. He had [place] and was staying in a hotel and had cut off all family contact for the best part of 18 months. Was reportedly removed from the [place] stay with his mom 1st., up all night, unusual beliefs and erratic behavior, always had his bags packed like he was going somewhere and then stayed with his father for a short period. does not believe his biological parents are his parents and calls him by the 1st name i.e. Dustin and Nataliia. Believes that Ciara Awan from the while family is his mother. They do note that mental state really decompensated after grandmother's passing in 2020 and grandfather approximately 6 months later. 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 Two inpatient episodes when younger with suicidal ideation. Formulation: presents with clear delusional symptoms with unclear timeframe. No overt mood symptoms. No substance issues of note . [place] asylum [place] 2 years in the [place]. Delusional beliefs that Ciara Awan from the royal family is his biological mother. Declining all medications or treatment . Will continue to try and establish rapport with ongoing evaluation and treatment plan accordingly. 02/09:establish rapport and educate as much as patient will engage and treatment plan accorindgly. Educated ref 3 day notice process and [place] warning should they pursue same. 02/10: Still refusing medications being ordered. Team might consider revoking CV. 02/11 aligner typewriter asked hx: pt vague, guarded. He says he went to because i was [place]from [place] He says a Federal fishing tool operator told me I had to be out of here [[facility]] he then said that a helicopter pilot came up to him and told him. Patient says that he was living in the in a longterm and then ended up living in a tent. He says that he decided to come home on his own so he went to the airport... He then said that a ticket was bought for him by Nataliia and/or Red and/or Dustin, Nataliia being the woman Who says she is my mother.. And Dustin the man who says he is my father... Red is Nataliia's . Patient says that for years he has been concerned that Nataliia is not his biological mother; he says he has asked for a DNA test but it has not been done. Patient reports that Red picked him up from the airport, took him back to [place]; patient said I was walking around... And minding his own business and he does not know why he was brought to the hospital; he says that Dustin tricked him. Patient expressed consternation when aligner typewriter asked his belief about Ciara Awan being his mother... And asked if some agency had contacted this aligner typewriter about it. He said he was asking for DNA test regarding Ciara Awan but then said no he does not believe Ciara Awan is his mother end of story and did not want to talk about this anymore. Patient does not want to be in the hospital; discussed 3 day notice which he went and signed; does not feel the need or want any medication Patient denies any drug or alcohol use; denies any AVH; denies any SI or HI; denies any depression Patient gave permission for team to contact his family, Red Chan Melissa and gave phone numbers 02/12 Patient remains guarded; staff reports did not sleep much last night or the night before though patient says he has been sleeping fine. Chemical Compounder Helper asked about activities while in [place]. Patient said he mostly just stayed in the longterm where he was staying and did not do any site-seeing or leave the vicinity much; said he sometimes helped load at a grocery store for food. Says he claimed asylum and there were government workers that would check on him, make sure he had food. Chemical Compounder Helper tried to discuss details regarding coming back to the states but patient would not discuss. Says he is glad to be back in that it states; has nowhere else to go for now so plans to go back to Nataliia's house; otherwise he said he would like to move back down self. Patient with irritable edge saying he has no idea why he is hospitalized; aligner typewriter offered to explain but patient said he did not want aligner typewriter to because I do not think all like your response... Patient insisted that he was in a state hospital; did not seem to believe that aligner typewriter was a psychiatrist and kept referring to some numbers or statutes and improper evaluation. Eventually however he did ask again why he was hospitalized and as aligner typewriter started to explain patient said are we done and that he no longer wanted to talk and left the room Collateral report obtained from patient's mother (see below): 02/13 remains guarded, without any insight at all demanding discharge. Chemical Compounder Helper discussed need for treatment including medication which patient refuses 02/14 refuses to engage; refused risperdal Impression: Patient remains at risk for not being able to take care himself in the community and harm coming from poor judgment as he is suffering from paranoid delusions and is without any insight at all. Patient's delusional thinking resulted in him becoming a missing person in a foreign country. He is only backing in the states because delegates in the [place] found patient (from mother filing missing person report there) and deported him back to [facility]. Without medication patient will remain unable to take care of himself in the community. Will file for involuntary commitment Plan: 3 day; will file for involuntary commitment Q 15 minute checks started Risperdal 1mg BID; pt refuses Patient has given permission for team to contact family for collateral Collateral: -dx w/ bipolar as child and on meds from 4 years old until 17 yo mother reports that her around patient living in [place]; patient called his mother and said people after him, saying he's a pediophile, that someone has a gun... Saying i need to leave [place]. Mom went down to get and brought him back home. However once he was home he called the police and said his mom was poisoning him w/ food and police showed up...went for psych admission and was dx with delusiuinal paranoanoia; patient did not take medications post discharge or follow up and thus forward maintain that Nataliia was not his real mother. About a year and a half ago Patient told his mother he wanted to go [place] to see whom he believed were his real parents, Ciara Awan and Prince Leblanc. Patient left; when he got there he claimed asylum and so was given some resources. There was some contact at 1st but soon there was no contact at all for about a year and patient's mother filed a missing person report with the [place] embassy there. Recently delegates from the [place] contacted her and deported him back to the [place] states. Her Red picked him up and brought him back home to [place]. While he was home the past weeks he was pacing the house, not sleeping and eating nonstop, eating literally all the groceries that she bought in 1 sitting, taking 5 showers a day and continually saying you are not my mother... Patient also expressed anger at her because his car was no longer. Since he was gone and not making car payments it was repossessed however he did not accept this explanation and accused her of scratching his car. Patient insisted that he had money in the bank though he had none. His father Dustin came to get him and took him to the hospital. Med trials (mother is not sure other than following: zoloft: tried to jump out of moving vehicle [place]: Severe Adverse effect Seroquel: Not sure Patient educated on: diagnosis and medication risk/benefits Informed Consent: does not understand Reason for continued inpatient stay Substantial Risk for: inability to function Time Spent With Patient Time: Total time managing care of this patient today ____ minutes.
[2025-02-15 08:00] VITALS: BP 116/55; PULSE 83; TEMP 35.9; O2SAT 95
[2025-02-15 20:00] VITALS: BP 112/57; PULSE 76; RESP 16; TEMP 36.8; O2SAT 97
--- NOTE | 2025-02-15 22:18 | P.PNPSI_ITS ---
Subjective Subjective Date of Service: 02/15/25 Reason For Visit: Bipolar disorder, unspecified Interim History: met with pt; discussed with team pt politely refuses to engage; says he sees no need to talk about anything Mental Status Exam Mental Status Exam Narrative: Pt is alert and oriented; behavior is guarded, superficially polite; non- cooperative, calm; patient is not in distress; dressed in casual attire, unkempt; mood is described as irritable and affect constricted; eye contact intense; Speech is normal rate, volume and prosody and not pressured; no psychomotor agitation/retardation present; thought process is organized and goal directed; Thought content is on wrong fully hospitalized; paranoid delusional thoughts; denies any SI/HI. Denies AVH though patient seems internally preoccupied Patients insight and judgment impaired. Diagnostics Vital Signs (24Hr): Vital Signs - 24 hr 02/15/25 08:00 02/15/25 20:00 Temperature 96.7 F L 98.2 F Pulse Rate 83 76 Respiratory Rate 16 Blood Pressure 116/55 L 112/57 L Pulse Oximetry 95 97 Oxygen Delivery Method Room Air Room Air BMI result Body Mass Index 31.1 Labs 02/09/25 07:18 Medications Medications Current Medications Acetaminophen (Acetaminophen 325 Mg Tablet) 650 mg PO Q6H PRN PRN Reason: Headache/Pain, Scale 1-10 Al Hydroxide/Mg Hydroxide (Magnesium Hydrox/Alum Hydrox 30 Ml Oral.Susp) 30 ml PO Q6H PRN PRN Reason: Heartburn/Nausea Hydroxyzine HCl (Hydroxyzine Hcl 25 Mg Tablet) 25 mg PO Q6H PRN PRN Reason: mild anxiety Magnesium Hydroxide (Milk Of Magnesia 30 Ml Oral.Susp) 30 ml PO DAILY PRN PRN Reason: Constipation Nicotine Polacrilex (Nicotine Polacrilex 2 Mg Gum) 2 mg BUCCAL Q2H PRN PRN Reason: Nicotine Cravings Olanzapine (Olanzapine Odt 10 Mg Tab.Rapdis) 10 mg TRANSLINGU Q6H PRN PRN Reason: agitation Risperidone (Risperidone 1 Mg Tablet) 1 mg PO BID TRICIA Last Admin: 02/15/25 21:18 Dose: Not Given Trazodone HCl (Trazodone Hcl 50 Mg Tablet) 50 mg PO BEDTIME MRX1 PRN PRN Reason: Insomnia Allergies Allergies Allergy/AdvReac Type Severity Reaction Status Date / Time Penicillins Allergy Unknown Unknown Verified 02/08/25 01:52 lithium AdvReac Unknown Unknown Verified 02/08/25 01:52 Assessment & Plan Assessment & Plan (1) Psychosis: Status: Acute Code(s): F29 - Unspecified psychosis not due to a substance or known physiological condition Plan HPI: patient overall pretty guarded and evasive during interview today. Most of history based off documentation from [facility] in [place], for patient was transferred as a direct admission to [facility]. This paperwork included lots of collateral information from patient's mom. Overall this notes that patient was in the [place] for 2 years and returned to the states on 01/19/2025. He had [place] asylum [place] and was staying in a hotel and had cut off all family contact for the best part of 18 months. Was reportedly removed from the [place] stay with his mom 1st., up all night, unusual beliefs and erratic behavior, always had his bags packed like he was going somewhere and then stayed with his father for a short period. does not believe his biological parents are his parents and calls him by the 1st name i.e. Dustin and Nataliia. Believes that Ciara Awan from the while family is his mother. They do note that mental state really decompensated after grandmother's passing in 2020 and grandfather approximately 6 months later. 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 Two inpatient episodes when younger with suicidal ideation. Formulation: presents with clear delusional symptoms with unclear timeframe. No overt mood symptoms. No substance issues of note . [place] asylum [place] 2 [place] in the [place]. Delusional beliefs that Ciara Awan from the royal family is his biological mother. Declining all medications or treatment . Will continue to try and establish rapport with ongoing evaluation and treatment plan accordingly. 02/09:establish rapport and educate as much as patient will engage and treatment plan accorindgly. Educated ref 3 day notice process and [facility] warning should they pursue same. 02/10: Still refusing medications being ordered. Team might consider revoking CV. 02/11 hand sign writer asked hx: pt vague, guarded. He says he went to [employer] because i was illeg[place]from [place] He says a Federal floor attendant told me I had to be out of here [[facility]] he then said that a marketing copywriter came up to him and told him. Patient says that [place] living [place] in [place] nursing and then ended up living in a tent. He says that he decided to come home on his own so he went to the airport... He then said that a ticket was bought for him by Nataliia and/or Red and/or Dustin, Nataliia being the woman Who says she is my mother.. And Dustin the man who says he is my father... Red is Nataliia's . Patient says that for years he has been concerned that Nataliia is not his biological mother; he says he has asked for a DNA test but it has not been done. Patient reports that Red picked him up from the airport, took him back to [place]; patient said I was walking around... And minding his own business and he does not know why he was brought to the hospital; he says that Dustin tricked him. Patient expressed consternation when hand sign writer asked his belief about Ciara Awan being his mother... And asked if some agency had contacted this hand sign writer about it. He said he was asking for DNA test regarding Ciara Awan but then said no he does not believe Ciara Awan is his mother end of story and did not want to talk about this anymore. Patient does not want to be in the hospital; discussed 3 day notice which he went and signed; does not feel the need or want any medication Patient denies any drug or alcohol use; denies any AVH; denies any SI or HI; denies any depression Patient gave permission for team to contact his family, Dustin, Rde, Nataliia and gave phone numbers 02/12 Patient remains guarded; staff reports did not sleep much last night or the night before though patient says he has been sleeping fine. Equipment Maintenance Tech asked about activities while in [place]. Patient said he mostly just stayed in the skilled nursing where he was staying and did not do any site-seeing or leave the vicinity much; said he sometimes helped load at a grocery store for food. Says he claimed asylum and there were government workers that would check on him, make sure he had food. Equipment Maintenance Tech tried to discuss details regarding coming back to the states but patient would not discuss. Says he is glad to be back in that it states; has nowhere else to go for now so plans to go back to Nataliia's house; otherwise he said he would like to move back down self. Patient with irritable edge saying he has no idea why he is hospitalized; hand sign writer offered to explain but patient said he did not want hand sign writer to because I do not think all like your response... Patient insisted that he was in a state hospital; did not seem to believe that hand sign writer was a psychiatrist and kept referring to some numbers or statutes and improper evaluation. Eventually however he did ask again why he was hospitalized and as hand sign writer started to explain patient said are we done and that he no longer wanted to talk and left the room Collateral report obtained from patient's mother (see below): 02/13 remains guarded, without any insight at all demanding discharge. Equipment Maintenance Tech discussed need for treatment including medication which patient refuses 02/14 refuses to engage; refused risperdal Impression: Patient remains at risk for not being able to take care himself in the community and harm coming from poor judgment as he is suffering from paranoid delusions and is without any insight at all. Patient's delusional thinking resulted in him becoming a missing person in a foreign country. He is only backing in the states because delegates in the [place] found patient (from mother filing missing person report there) and deported him back to [facility]. Without medication patient will remain unable to take care of himself in the community. Will file for involuntary commitment Plan: 3 day; will file for involuntary commitment Q 15 minute checks started Risperdal 1mg BID; pt refuses Patient has given permission for team to contact family for collateral Collateral: -dx w/ bipolar as child and on meds from 4 years old until 17 yo mother reports that her around patient living in [place]; patient called his mother and said people after him, saying he's a pediophile, that someone has a gun... Saying [place] need to leave [place]. Mom went down to get and brought him back home. However once he was home he called the police and said his mom was poisoning him w/ food and police showed up...went for psych admission and was dx with delusiuinal paranoanoia; patient did not take medications post discharge or follow up and thus forward maintain that Nataliia was not his real mother. About a year and a half ago Patient told his mother he wanted to go [place] to see whom he believed were his real parents, Ciara Awan and Prince Leblanc. Patient left; when he got there he claimed asylum and so was given some resources. There was some contact at 1st but soon there was no contact at all for about a year and patient's mother filed a missing person report with the [place] embassy there. Recently delegates from [place] contacted her and [place] Her Red picked him up and brought him back home to [place]. While he was home the past weeks he was pacing the house, not sleeping and eating nonstop, eating literally all the groceries that she bought in 1 sitting, taking 5 showers a day and continually saying you are not my mother... Patient also expressed anger at her because his car was no longer. Since he was gone and not making car payments it was repossessed however he did not accept this explanation and accused her of scratching his car. Patient insisted that he had money in the bank though he had none. His father Dustin came to get him and took him to the hospital. Med trials (mother is not sure other than following: zoloft: tried to jump out of moving vehicle [place]: Severe Adverse effect Seroquel: Not sure Patient educated on: diagnosis Informed Consent: does not understand Reason for continued inpatient stay Substantial Risk for: inability to function Time Spent With Patient Time: Total time managing care of this patient today ____ minutes.
[2025-02-16 08:00] VITALS: BP 109/60; PULSE 73; TEMP 36.8; O2SAT 96
--- NOTE | 2025-02-16 14:27 | P.PNPSI_ITS ---
Subjective Subjective Date of Service: 02/16/25 Reason For Visit: Bipolar disorder, unspecified Interim History: Met with patient; discussed with team Patient remains isolative, lying in bed on approach, awake/alert. Honey Processor again broaches topic of admission, trip to [place] and back however patient Says he does not want to talk about it or anything else. Mental Status Exam Mental Status Exam Narrative: Pt is alert and oriented; behavior is guarded, superficially polite; non- cooperative, calm; patient is not in distress; dressed in casual attire, unkempt; mood is described as distant and affect constricted; eye contact avoidant; Speech is normal rate, volume and prosody and not pressured; psychomotor retardation present; thought process is organized and goal directed; Thought content is on wrong fully hospitalized; paranoid delusional thoughts; denies any SI/HI. Denies AVH though patient seems internally preoccupied Patients insight and judgment impaired. Diagnostics Vital Signs (24Hr): Vital Signs - 24 hr 02/15/25 20:00 02/16/25 08:00 Temperature 98.2 F 98.3 F Pulse Rate 76 73 Respiratory Rate 16 Blood Pressure 112/57 L 109/60 Pulse Oximetry 97 96 Oxygen Delivery Method Room Air Room Air BMI result Body Mass Index 31.1 Labs 02/09/25 07:18 Medications Medications Current Medications Acetaminophen (Acetaminophen 325 Mg Tablet) 650 mg PO Q6H PRN PRN Reason: Headache/Pain, Scale 1-10 Al Hydroxide/Mg Hydroxide (Magnesium Hydrox/Alum Hydrox 30 Ml Oral.Susp) 30 ml PO Q6H PRN PRN Reason: Heartburn/Nausea Hydroxyzine HCl (Hydroxyzine Hcl 25 Mg Tablet) 25 mg PO Q6H PRN PRN Reason: mild anxiety Magnesium Hydroxide (Milk Of Magnesia 30 Ml Oral.Susp) 30 ml PO DAILY PRN PRN Reason: Constipation Nicotine Polacrilex (Nicotine Polacrilex 2 Mg Gum) 2 mg BUCCAL Q2H PRN PRN Reason: Nicotine Cravings Olanzapine (Olanzapine Odt 10 Mg Tab.Rapdis) 10 mg TRANSLINGU Q6H PRN PRN Reason: agitation Risperidone (Risperidone 1 Mg Tablet) 1 mg PO BID TRICIA Last Admin: 02/16/25 08:26 Dose: Not Given Trazodone HCl (Trazodone Hcl 50 Mg Tablet) 50 mg PO BEDTIME MRX1 PRN PRN Reason: Insomnia Allergies Allergies Allergy/AdvReac Type Severity Reaction Status Date / Time Penicillins Allergy Unknown Unknown Verified 02/08/25 01:52 lithium AdvReac Unknown Unknown Verified 02/08/25 01:52 Assessment & Plan Assessment & Plan (1) Psychosis: Status: Acute Code(s): F29 - Unspecified psychosis not due to a substance or known physiological condition Plan HPI: patient overall pretty guarded and evasive during interview today. Most of history based off documentation from [facility] in [place], for patient was transferred as a direct admission to [facility]. This paperwork included lots of collateral information from patient's mom. Overall this notes that patient was in the [place] for 2 years and returned to the states on 01/19/2025. He had [place] and was staying in a hotel and had cut off all family contact for the best part of 18 months. Was reportedly removed from the [place] stay with his mom 1st., up all night, unusual beliefs and erratic behavior, always had his bags packed like he was going somewhere and then stayed with his father for a short period. does not believe his biological parents are his parents and calls him by the 1st name i.e. Dustin and Nataliia. Believes that Ciara Awan from the while family is his mother. They do note that mental state really decompensated after grandmother's passing in 2020 and grandfather approximately 6 months later. 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 Two inpatient episodes when younger with suicidal ideation. Formulation: presents with clear delusional symptoms with unclear timeframe. No overt mood symptoms. No substance issues of note . [place] 2 [place] in the [place]. Delusional beliefs that Ciara Awan from the royal family is his biological mother. Declining all medications or treatment . Will continue to try and establish rapport with ongoing evaluation and treatment plan accordingly. 02/09:establish rapport and educate as much as patient will engage and treatment plan accorindgly. Educated ref 3 day notice process and [place] warning should they pursue same. 02/10: Still refusing medications being ordered. Team might consider revoking CV. 02/11 curriculum writer asked hx: pt vague, guarded. He says he went to because [place] was [place]from [place] He says a Federal lean six sigma senior specialist told me I had to be out of here [[facility]] he then said that a photocopying equipment mechanic came up to him and told him. Patient says that [place] living [place] in [place]ial and then ended up living in a tent. He says that he decided to come home on his own so he went to the airport... He then said that a ticket was bought for him by Nataliia and/or Red and/or Dustin, Nataliia being the woman Who says she is my mother.. And Dustin the man who says he is my father... Red is Nataliia's . Patient says that for years he has been concerned that Nataliia is not his biological mother; he says he has asked for a DNA test but it has not been done. Patient reports that Red picked him up from the airport, took him back to [place]; patient said I was walking around... And minding his own business and he does not know why he was brought to the hospital; he says that Dustin tricked him. Patient expressed consternation when curriculum writer asked his belief about Ciara Awan being his mother... And asked if some agency had contacted this curriculum writer about it. He said he was asking for DNA test regarding Ciara Awan but then said no he does not believe Ciara Awan is his mother end of story and did not want to talk about this anymore. Patient does not want to be in the hospital; discussed 3 day notice which he went and signed; does not feel the need or want any medication Patient denies any drug or alcohol use; denies any AVH; denies any SI or HI; denies any depression Patient gave permission for team to contact his family, Red Chan Melissa and gave phone numbers 02/12 Patient remains guarded; staff reports did not sleep much last night or the night before though patient says he has been sleeping fine. Honey Processor asked about activities while in [place]. Patient said he mostly just stayed in the custodial where he was staying and did not do any site-seeing or leave the vicinity much; said he sometimes helped load at a grocery store for food. Says he claimed asylum and there were government workers that would check on him, make sure he had food. Honey Processor tried to discuss details regarding coming back to the states but patient would not discuss. Says he is glad to be back in that it states; has nowhere else to go for now so plans to go back to Nataliia's house; otherwise he said he would like to move back down self. Patient with irritable edge saying he has no idea why he is hospitalized; curriculum writer offered to explain but patient said he did not want curriculum writer to because I do not think all like your response... Patient insisted that he was in a state hospital; did not seem to believe that curriculum writer was a psychiatrist and kept referring to some numbers or statutes and improper evaluation. Eventually however he did ask again why he was hospitalized and as curriculum writer started to explain patient said are we done and that he no longer wanted to talk and left the room Collateral report obtained from patient's mother (see below): 02/13 remains guarded, without any insight at all demanding discharge. Honey Processor discussed need for treatment including medication which patient refuses 02/14 refuses to engage; refused risperdal 02/15 refuses to engage; refused risperdal 02/16 Patient remains isolative, lying in bed on approach, awake/alert. Honey Processor again broaches topic of admission, trip to [place] and back however patient Says he does not want to talk about it or anything else Impression: Patient remains at risk for not being able to take care himself in the community and harm coming from poor judgment as he is suffering from paranoid delusions and is without any insight at all. Patient's delusional thinking resulted in him becoming a missing person in a foreign country. He is only backing in the states because delegates in the [place] found patient (from mother filing missing person report there) and deported him back to [place] states. Without medication patient will remain unable to take care of himself in the community. Filed for involuntary commitment Plan: 3 day; will file for involuntary commitment Q 15 minute checks continue Risperdal 1mg BID; pt refuses Patient has given permission for team to contact family for collateral Collateral: -dx w/ bipolar as child and on meds from 4 years old until 17 yo mother reports that her around patient living in [place]; patient called his mother and said people after him, saying he's a pediophile, that someone has a gun... Saying i need to leave [place]. Mom went down to get and brought him back home. However once he was home he called the police and said his mom was poisoning him w/ food and police showed up...went for psych admission and was dx with delusiuinal paranoanoia; patient did not take medications post discharge or follow up and thus forward maintain that Nataliia was not his real mother. About a year and a half ago Patient told his mother he wanted to go [place] to see whom he believed were his real parents, Ciara Awan and Prince Leblanc. Patient left; when he got there he claimed asylum and so was given some resources. There was some contact at 1st but soon there was no contact at all for about a year and patient's mother filed a missing person report with the [place] embassy there. Recently delegates from the [place] contacted her and deported him back to the [place]. Her Red picked him up and brought him back home to [place]. While he was home the past weeks he was pacing the house, not sleeping and eating nonstop, eating literally all the groceries that she bought in 1 sitting, taking 5 showers a day and continually saying you are not my mother... Patient also expressed anger at her because his car was no longer. Since he was gone and not making car payments it was repossessed however he did not accept this explanation and accused her of scratching his car. Patient insisted that he had money in the bank though he had none. His father Dustin came to get him and took him to the hospital. Med trials (mother is not sure other than following: zoloft: tried to jump out of moving vehicle [place]: Severe Adverse effect Seroquel: Not sure Patient educated on: diagnosis Informed Consent: does not understand Reason for continued inpatient stay Substantial Risk for: inability to function Time Spent With Patient Time: Total time managing care of this patient today ____ minutes.
[2025-02-16 20:00] VITALS: BP 141/64; PULSE 111; RESP 16; TEMP 36.4; O2SAT 95
[2025-02-17 08:00] VITALS: BP 112/64; PULSE 77; RESP 17; TEMP 36.5; O2SAT 96
--- NOTE | 2025-02-17 11:45 | HO.PSYCHPN ---
Subjective Subjective Date of Service: 02/17/25 Reason For Visit: Bipolar disorder, unspecified Interim History: met with patient; discussed with team No change in presentation; remains isolative, lying in bed; avoids eye contact. Politely declines to talk to fiction and nonfiction prose writer despite continued inquiry , saying no I do not want to talk about that... Mental Status Exam Mental Status Exam Narrative: Pt is alert and oriented; behavior is guarded, superficially polite; non-cooperative, calm; patient is not in distress; dressed in casual attire, unkempt; mood is described as distant and affect constricted; eye contact avoidant; Speech is normal rate, volume and prosody and not pressured; psychomotor retardation present; thought process is organized and goal directed; Thought content is on wrong fully hospitalized; paranoid delusional thoughts; denies any SI/HI. Denies AVH though patient seems internally preoccupied Patients insight and judgment impaired. Diagnostics Vital Signs (24Hr): Vital Signs - 24 hr 02/16/25 20:00 02/17/25 08:00 Temperature 97.5 F 97.7 F Pulse Rate 111 H 77 Respiratory Rate 16 17 Blood Pressure 141/64 H 112/64 Pulse Oximetry 95 96 Oxygen Delivery Method Room Air Room Air BMI result Body Mass Index 31.1 Labs 02/09/25 07:18 Medications Medications Current Medications Acetaminophen (Acetaminophen 325 Mg Tablet) 650 mg PO Q6H PRN PRN Reason: Headache/Pain, Scale 1-10 Al Hydroxide/Mg Hydroxide (Magnesium Hydrox/Alum Hydrox 30 Ml Oral.Susp) 30 ml PO Q6H PRN PRN Reason: Heartburn/Nausea Hydroxyzine HCl (Hydroxyzine Hcl 25 Mg Tablet) 25 mg PO Q6H PRN PRN Reason: mild anxiety Magnesium Hydroxide (Milk Of Magnesia 30 Ml Oral.Susp) 30 ml PO DAILY PRN PRN Reason: Constipation Nicotine Polacrilex (Nicotine Polacrilex 2 Mg Gum) 2 mg BUCCAL Q2H PRN PRN Reason: Nicotine Cravings Olanzapine (Olanzapine Odt 10 Mg Tab.Rapdis) 10 mg TRANSLINGU Q6H PRN PRN Reason: agitation Risperidone (Risperidone 1 Mg Tablet) 1 mg PO BID TRICIA Last Admin: 02/17/25 09:06 Dose: Not Given Trazodone HCl (Trazodone Hcl 50 Mg Tablet) 50 mg PO BEDTIME MRX1 PRN PRN Reason: Insomnia Allergies Allergies Allergy/AdvReac Type Severity Reaction Status Date / Time Penicillins Allergy Unknown Unknown Verified 02/08/25 01:52 lithium AdvReac Unknown Unknown Verified 02/08/25 01:52 Assessment & Plan Assessment & Plan (1) Psychosis: Status: Acute Code(s): F29 - Unspecified psychosis not due to a substance or known physiological condition Plan HPI: patient overall pretty guarded and evasive during interview today. Most of history based off documentation from [facility] ED in [place], for patient was transferred as a direct admission to [facility]. This paperwork included lots of collateral information from patient's mom. Overall this notes that patient was in the [place] for 2 years and returned to the states on 01/19/2025. He had claimed asylum in the [place] and was staying in a hotel and had cut off all family contact for the best part of 18 months. Was reportedly removed from the [place] stay with his mom 1st., up all night, unusual beliefs and erratic behavior, always had his bags packed like he was going somewhere and then stayed with his father for a short period. does not believe his biological parents are his parents and calls him by the 1st name i.e. Dustin and Nataliia. Believes that Ciara Awan from the while family is his mother. They do note that mental state really decompensated after grandmother's passing in 2020 and grandfather approximately 6 months later. 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 Two inpatient episodes when younger with suicidal ideation. Formulation: presents with clear delusional symptoms with unclear timeframe. No overt mood symptoms. No substance issues of note . [place] asylum [place] 2 years in the [place]. Delusional beliefs that Ciara Awan from the royal family is his biological mother. Declining all medications or treatment . Will continue to try and establish rapport with ongoing evaluation and treatment plan accordingly. 02/09:establish rapport and educate as much as patient will engage and treatment plan accorindgly. Educated ref 3 day notice process and [place] warning should they pursue same. 02/10: Still refusing medications being ordered. Team might consider revoking CV. 02/11 fiction and nonfiction prose writer asked hx: pt vague, guarded. He says he went to because i was illeg[place]...from [place] He says a Federal cupola mechanic told me I had to be out of here [[facility]] he then said that a copywriting intern came up to him and told him. Patient says that he was living [place] in a half[place]way and then ended up living in a tent. He says that he decided to come home on his own so he went to the airport... He then said that a ticket was bought for him by Nataliia and/or Red and/or Dustin, Nataliia being the woman Who says she is my mother.. And Dustin the man who says he is my father... Red is Nataliia's . Patient says that for years he has been concerned that Nataliia is not his biological mother; he says he has asked for a DNA test but it has not been done. Patient reports that Red picked him up from the airport, took him back to [place]; patient said I was walking around... And minding his own business and he does not know why he was brought to the hospital; he says that Dustin tricked him. Patient expressed consternation when fiction and nonfiction prose writer asked his belief about Ciara Awan being his mother... And asked if some agency had contacted this fiction and nonfiction prose writer about it. He said he was asking for DNA test regarding Ciara Awan but then said no he does not believe Ciara Awan is his mother end of story and did not want to talk about this anymore. Patient does not want to be in the hospital; discussed 3 day notice which he went and signed; does not feel the need or want any medication Patient denies any drug or alcohol use; denies any AVH; denies any SI or HI; denies any depression Patient gave permission for team to contact his family, Red Chan Melissa and gave phone numbers 02/12 Patient remains guarded; staff reports did not sleep much last night or the night before though patient says he has been sleeping fine. Stock Dealer asked about activities while in [place]. Patient said he mostly just stayed in the half-way where he was staying and did not do any site-seeing or leave the vicinity much; said he sometimes helped load at a grocery store for food. Says he claimed asylum and there were government workers that would check on him, make sure he had food. Stock Dealer tried to discuss details regarding coming back to the states but patient would not discuss. Says he is glad to be back in that it states; has nowhere else to go for now so plans to go back to Nataliia's house; otherwise he said he would like to move back down self. Patient with irritable edge saying he has no idea why he is hospitalized; fiction and nonfiction prose writer offered to explain but patient said he did not want fiction and nonfiction prose writer to because I do not think all like your response... Patient insisted that he was in a state hospital; did not seem to believe that fiction and nonfiction prose writer was a psychiatrist and kept referring to some numbers or statutes and improper evaluation. Eventually however he did ask again why he was hospitalized and as fiction and nonfiction prose writer started to explain patient said are we done and that he no longer wanted to talk and left the room Collateral report obtained from patient's mother (see below): 02/13 remains guarded, without any insight at all demanding discharge. Stock Dealer discussed need for treatment including medication which patient refuses 02/14 refuses to engage; refused risperdal 02/15 refuses to engage; refused risperdal 02/16 Patient remains isolative, lying in bed on approach, awake/alert. Stock Dealer again broaches topic of admission, trip to [place] and back however patient Says he does not want to talk about it or anything else 02/17 no change in presentation; continue treatment though patient refuses Risperdal Impression: Patient remains at risk for not being able to take care himself in the community and harm coming from poor judgment as he is suffering from paranoid delusions and is without any insight at all. Patient's delusional thinking resulted in him becoming a missing person in a foreign country. He is only backing in the states because delegates in the [place] found patient (from mother filing missing person report there) and [place]. Without medication patient will remain unable to take care of himself in the community. Filed for involuntary commitment Plan: 3 day; will file for involuntary commitment Q 15 minute checks continue Risperdal 1mg BID; pt refuses Patient has given permission for team to contact family for collateral Collateral: -dx w/ bipolar as child and on meds from 4 years old until 17 yo mother reports that her around patient living in [place]; patient called his mother and said people after him, saying he's a pediophile, that someone has a gun... Saying i need to leave [place]. Mom went down to get and brought him back home. However once he was home he called the police and said his mom was poisoning him w/ food and police showed up...went for psych admission and was dx with delusiuinal paranoanoia; patient did not take medications post discharge or follow up and thus forward maintain that Nataliia was not his real mother. About a year and a half ago Patient told his mother he wanted to go to [place] to see whom he believed were his real parents, Ciara Awan and Prince Leblanc. Patient left; when he got there he claimed asylum and so was given some resources. There was some contact at 1st but soon there was no contact at all for about a year and patient's mother filed a missing person report with the [place] embassy there. Recently delegates from the [place] contacted her and deported him back to the [place]. Her Red picked him up and brought him back home to [place]. While he was home the past weeks he was pacing the house, not sleeping and eating nonstop, eating literally all the groceries that she bought in 1 sitting, taking 5 showers a day and continually saying you are not my mother... Patient also expressed anger at her because his car was no longer. Since he was gone and not making car payments it was repossessed however he did not accept this explanation and accused her of scratching his car. Patient insisted that he had money in the bank though he had none. His father Dustin came to get him and took him to the hospital. Med trials (mother is not sure other than following: zoloft: tried to jump out of moving vehicle [place]: Severe Adverse effect Seroquel: Not sure Patient educated on: diagnosis Informed Consent: does not understand Reason for continued inpatient stay Substantial Risk for: inability to function Time Spent With Patient Time: Total time managing care of this patient today ____ minutes.
[2025-02-17 19:40] VITALS: BP 137/69; PULSE 94; RESP 16; TEMP 36.7; O2SAT 97
--- NOTE | 2025-02-17 22:33 | PC.NURSE ---
Patient refused 1:1 interaction and also refused HS scheduled Risperdal.
[2025-02-18 07:58] VITALS: BP 97/66; PULSE 68; RESP 16; TEMP 37.6; O2SAT 95
--- NOTE | 2025-02-18 09:41 | P.PNPSI_ITS ---
Subjective Subjective Date of Service: 02/18/25 Reason For Visit: Bipolar disorder, unspecified Interim History: met with patient; discussed with team On approach patient polite and says what is up og... Director Of Managed Services asked if patient was willing to talk about going to [place] and situation surrounding that decisions; patient said it was not important to talk about. Director Of Managed Services explained again that court was coming up and that a leather cleaner will decide whether or not patient is involuntarily committed and needs to take medication... Patient said that that is not going to happen, that he is not going to stay in the hospital or take medication...again inquired why he decided to go to [place] in the 1st place and patient said I was told to... But would not explain further other than to say he wanted to return to the [place] but was told it was an illegal deportation 1A but said this was in the past and not relevant. He asked who display card writer was and display card writer reminded him name, title..and pt said you told me you were not a doctor.. But when display card writer explained to the contrary, patient insisted otherwise. Conversation ended -staff reports no ADL's Mental Status Exam Mental Status Exam Narrative: Pt is alert and oriented; behavior is guarded, superficially polite; marginally cooperative, calm; patient is not in distress; dressed in casual attire, unkempt; mood is described as distant and affect constricted; eye contact avoidant; Speech is normal rate, volume and prosody and not pressured; psychomotor retardation present; thought process is organized and goal directed; Thought content is on wrong fully hospitalized; paranoid delusional thoughts; denies any SI/HI. Denies AVH though patient seems internally preoccupied Patients insight and judgment impaired. Diagnostics Vital Signs (24Hr): Vital Signs - 24 hr 02/17/25 19:40 02/18/25 07:58 Temperature 98.1 F 99.7 F Pulse Rate 94 68 Respiratory Rate 16 16 Blood Pressure 137/69 97/66 Pulse Oximetry 97 95 Oxygen Delivery Method Room Air BMI result Body Mass Index 31.1 Labs 02/09/25 07:18 Medications Medications Current Medications Acetaminophen (Acetaminophen 325 Mg Tablet) 650 mg PO Q6H PRN PRN Reason: Headache/Pain, Scale 1-10 Al Hydroxide/Mg Hydroxide (Magnesium Hydrox/Alum Hydrox 30 Ml Oral.Susp) 30 ml PO Q6H PRN PRN Reason: Heartburn/Nausea Hydroxyzine HCl (Hydroxyzine Hcl 25 Mg Tablet) 25 mg PO Q6H PRN PRN Reason: mild anxiety Magnesium Hydroxide (Milk Of Magnesia 30 Ml Oral.Susp) 30 ml PO DAILY PRN PRN Reason: Constipation Nicotine Polacrilex (Nicotine Polacrilex 2 Mg Gum) 2 mg BUCCAL Q2H PRN PRN Reason: Nicotine Cravings Olanzapine (Olanzapine Odt 10 Mg Tab.Rapdis) 10 mg TRANSLINGU Q6H PRN PRN Reason: agitation Risperidone (Risperidone 1 Mg Tablet) 1 mg PO BID TRICIA Last Admin: 02/18/25 09:19 Dose: Not Given Trazodone HCl (Trazodone Hcl 50 Mg Tablet) 50 mg PO BEDTIME MRX1 PRN PRN Reason: Insomnia Allergies Allergies Allergy/AdvReac Type Severity Reaction Status Date / Time Penicillins Allergy Unknown Unknown Verified 02/08/25 01:52 lithium AdvReac Unknown Unknown Verified 02/08/25 01:52 Assessment & Plan Assessment & Plan (1) Psychosis: Status: Acute Code(s): F29 - Unspecified psychosis not due to a substance or known physiological condition Plan HPI: patient overall pretty guarded and evasive during interview today. Most of history based off documentation from [facility] in [place], for patient was transferred as a direct admission to [facility]. This paperwork included lots of collateral information from patient's mom. Overall this notes that patient was in the [place] for 2 years and returned to the states on 01/19/2025. He had claimed asylum in the [place] and was staying in a hotel and had cut off all family contact for the best part of 18 months. Was reportedly removed from the [place] stay with his mom 1st., up all night, unusual beliefs and erratic behavior, always had his bags packed like he was going somewhere and then stayed with his father for a short period. does not believe his biological parents are his parents and calls him by the 1st name i.e. Dustin and Nataliia. Believes that Ciara Awan from the while family is his mother. They do note that mental state really decompensated after grandmother's passing in 2020 and grandfather approximately 6 months later. 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 Two inpatient episodes when younger with suicidal ideation. Formulation: presents with clear delusional symptoms with unclear timeframe. No overt mood symptoms. No substance issues of note . [place] asylum [place] 2 years in the [place]. Delusional beliefs that Ciara Awan from the [facility] is his biological mother. Declining all medications or treatment . Will continue to try and establish rapport with ongoing evaluation and treatment plan accordingly. 02/09:establish rapport and educate as much as patient will engage and treatment plan accorindgly. Educated ref 3 day notice process and [place] warning should they pursue same. 02/10: Still refusing medications being ordered. Team might consider revoking CV. 02/11 display card writer asked hx: pt vague, guarded. He says he went to [place] was [place]from [place] He says a Federal research methodologist told me I had to be out of here [[facility]] he then said that a copier operator came up to him and told him. Patient says that he was living in the in a chcf and then ended up living in a tent. He says that he decided to come home on his own so he went to the airport... He then said that a ticket was bought for him by Nataliia and/or Red and/or Dustin, Nataliia being the woman Who says she is my mother.. And Dustin the man who says he is my father... Red is Nataliia's . Patient says that for years he has been concerned that Nataliia is not his biological mother; he says he has asked for a DNA test but it has not been done. Patient reports that Red picked him up from the airport, took him back to [place]; patient said I was walking around... And minding his own business and he does not know why he was brought to the hospital; he says that Dustin tricked him. Patient expressed consternation when display card writer asked his belief about Ciara Awan being his mother... And asked if some agency had contacted this display card writer about it. He said he was asking for DNA test regarding Ciara Awan but then said no he does not believe Ciara Awan is his mother end of story and did not want to talk about this anymore. Patient does not want to be in the hospital; discussed 3 day notice which he went and signed; does not feel the need or want any medication Patient denies any drug or alcohol use; denies any AVH; denies any SI or HI; denies any depression Patient gave permission for team to contact his family, Red Chan, Nataliia and gave phone numbers 02/12 Patient remains guarded; staff reports did not sleep much last night or the night before though patient says he has been sleeping fine. Director Of Managed Services asked about activities while in [place]. Patient said he mostly just stayed in the chcf where he was staying and did not do any site-seeing or leave the vicinity much; said he sometimes helped load at a grocery store for food. Says he claimed asylum and there were government workers that would check on him, make sure he had food. Director Of Managed Services tried to discuss details regarding coming back to the states but patient would not discuss. Says he is glad to be back in that it states; has nowhere else to go for now so plans to go back to Nataliia's house; otherwise he said he would like to move back down self. Patient with irritable edge saying he has no idea why he is hospitalized; display card writer offered to explain but patient said he did not want display card writer to because I do not think all like your response... Patient insisted that he was in a state hospital; did not seem to believe that display card writer was a psychiatrist and kept referring to some numbers or statutes and improper evaluation. Eventually however he did ask again why he was hospitalized and as display card writer started to explain patient said are we done and that he no longer wanted to talk and left the room Collateral report obtained from patient's mother (see below): 02/13 remains guarded, without any insight at all demanding discharge. Director Of Managed Services discussed need for treatment including medication which patient refuses 02/14 refuses to engage; refused risperdal 02/15 refuses to engage; refused risperdal 02/16 Patient remains isolative, lying in bed on approach, awake/alert. Director Of Managed Services again broaches topic of admission, trip to [place] and back however patient Says he does not want to talk about it or anything else 02/17 no change in presentation; continue treatment though patient refuses Risperdal 02/18 On approach patient polite and says what is up og... Director Of Managed Services asked if patient was willing to talk about going to [place] and situation surrounding that decisions; patient said it was not important to talk about. Director Of Managed Services explained again that court was coming up and that a leather cleaner will decide whether or not patient is involuntarily committed and needs to take medication... Patient said that that is not going to happen, that he is not going to stay in the hospital or take medication...again inquired why he decided to go to [place] in the 1st place and patient said I was told to... But would not explain further other than to say [place] but was told it was an illegal deportation 1A but said this was in the past and not relevant. He asked who display card writer was and display card writer reminded him name, title..and pt said you told me you were not a doctor.. But when display card writer explained to the contrary, patient insisted otherwise. Conversation ended -staff reports no ADL's Impression: Patient remains at risk for not being able to take care himself in the community and harm coming from poor judgment as he is suffering from paranoid delusions and is without any insight at all. Patient's delusional thinking resulted in him becoming a missing person in a foreign country. He is only backing in the states because delegates in the [place] found patient (from mother filing missing person report there) and [place]. Without medication patient will remain unable to take care of himself in the community. Filed for involuntary commitment Plan: 3 day; will file for involuntary commitment Q 15 minute checks continue Risperdal 1mg BID; pt refuses Patient has given permission for team to contact family for collateral Collateral: -dx w/ bipolar as child and on meds from 4 years old until 17 yo mother reports that her around patient living in [place]; patient called his mother and said people after him, saying he's a pediophile, that someone has a gun... Saying i need to leave [place]. Mom went down to get and brought him back home. However once he was home he called the police and said his mom was poisoning him w/ food and police showed up...went for psych admission and was dx with delusiuinal paranoanoia; patient did not take medications post discharge or follow up and thus forward maintain that Nataliia was not his real mother. About a year and a half ago Patient told his mother he wanted to go to [place] to see whom he believed were his real parents, Ciara Awan and Prince Leblanc. Patient left; when he got there he claimed asylum and so was given some resources. There was some contact at 1st but soon there was no contact at all for about a year and patient's mother filed a missing person report with the [place] embassy there. Recently delegates from the [place] contacted her and deported him back to the [place] states. Her Red picked him up and brought him back home to [place]. While he was home the past weeks he was pacing the house, not sleeping and eating nonstop, eating literally all the groceries that she bought in 1 sitting, taking 5 showers a day and continually saying you are not my mother... Patient also expressed anger at her because his car was no longer. Since he was gone and not making car payments it was repossessed however he did not accept this explanation and accused her of scratching his car. Patient insisted that he had money in the bank though he had none. His father Dustin came to get him and took him to the hospital. Med trials (mother is not sure other than following: zoloft: tried to jump out of moving vehicle [place]: Severe Adverse effect Seroquel: Not sure Patient educated on: diagnosis Informed Consent: does not understand Reason for continued inpatient stay Substantial Risk for: inability to function Time Spent With Patient Time: Total time managing care of this patient today ____ minutes.
[2025-02-18 19:36] VITALS: BP 145/62; PULSE 84; TEMP 36.6; O2SAT 97
[2025-02-19 08:00] VITALS: BP 121/63; PULSE 70; RESP 16; TEMP 36.8; O2SAT 98
--- NOTE | 2025-02-19 09:38 | HO.PSYCHPN ---
Subjective Subjective Date of Service: 02/19/25 Reason For Visit: Bipolar disorder, unspecified Interim History: met with patient; discussed with team approached patient but pt refused to engage Mental Status Exam Mental Status Exam Narrative: Pt is alert and oriented; behavior is guarded, superficially polite; marginally cooperative, calm; patient is not in distress; dressed in casual attire, unkempt; mood is described as distant and affect constricted; eye contact avoidant; Speech is normal rate, volume and prosody and not pressured; psychomotor retardation present; thought process is organized and goal directed; Thought content is on wrong fully hospitalized; paranoid delusional thoughts; denies any SI/HI. Denies AVH though patient seems internally preoccupied Patients insight and judgment impaired. Diagnostics Vital Signs (24Hr): Vital Signs - 24 hr 02/18/25 19:36 02/19/25 08:00 Temperature 97.9 F 98.2 F Pulse Rate 84 70 Respiratory Rate 16 Blood Pressure 145/62 H 121/63 Pulse Oximetry 97 98 Oxygen Delivery Method Room Air Room Air BMI result Body Mass Index 31.1 Labs 02/09/25 07:18 Medications Medications Current Medications Acetaminophen (Acetaminophen 325 Mg Tablet) 650 mg PO Q6H PRN PRN Reason: Headache/Pain, Scale 1-10 Al Hydroxide/Mg Hydroxide (Magnesium Hydrox/Alum Hydrox 30 Ml Oral.Susp) 30 ml PO Q6H PRN PRN Reason: Heartburn/Nausea Hydroxyzine HCl (Hydroxyzine Hcl 25 Mg Tablet) 25 mg PO Q6H PRN PRN Reason: mild anxiety Magnesium Hydroxide (Milk Of Magnesia 30 Ml Oral.Susp) 30 ml PO DAILY PRN PRN Reason: Constipation Nicotine Polacrilex (Nicotine Polacrilex 2 Mg Gum) 2 mg BUCCAL Q2H PRN PRN Reason: Nicotine Cravings Olanzapine (Olanzapine Odt 10 Mg Tab.Rapdis) 10 mg TRANSLINGU Q6H PRN PRN Reason: agitation Risperidone (Risperidone 1 Mg Tablet) 1 mg PO BID TRICIA Last Admin: 02/19/25 08:16 Dose: Not Given Trazodone HCl (Trazodone Hcl 50 Mg Tablet) 50 mg PO BEDTIME MRX1 PRN PRN Reason: Insomnia Allergies Allergies Allergy/AdvReac Type Severity Reaction Status Date / Time Penicillins Allergy Unknown Unknown Verified 02/08/25 01:52 lithium AdvReac Unknown Unknown Verified 02/08/25 01:52 Assessment & Plan Assessment & Plan (1) Psychosis: Status: Acute Code(s): F29 - Unspecified psychosis not due to a substance or known physiological condition Plan HPI: patient overall pretty guarded and evasive during interview today. Most of history based off documentation from [facility] ED in [place], for patient was transferred as a direct admission to [facility]. This paperwork included lots of collateral information from patient's mom. Overall this notes that patient was in the [place] for 2 years and [place] to the states on [place]/19/20[place]. He had claimed asylum in the [place] and was staying in a hotel and had cut off all family contact for the best part of 18 months. Was reportedly removed from the [place] stay with his mom 1st., up all night, unusual beliefs and erratic behavior, always had his bags packed like he was going somewhere and then stayed with his father for a short period. does not believe his biological parents are his parents and calls him by the 1st name i.e. Dustin and Nataliia. Believes that Ciara Awan from the while family is his mother. They do note that mental state really decompensated after grandmother's passing in 2020 and grandfather approximately 6 months later. 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 Two inpatient episodes when younger with suicidal ideation. Formulation: presents with clear delusional symptoms with unclear timeframe. No overt mood symptoms. No substance issues of note . [place] asylum [place] 2 years in the [place]. Delusional beliefs that Ciara Awan from the royal family is his biological mother. Declining all medications or treatment . Will continue to try and establish rapport with ongoing evaluation and treatment plan accordingly. 02/09:establish rapport and educate as much as patient will engage and treatment plan accorindgly. Educated ref 3 day notice process and [place] warning should they pursue same. 02/10: Still refusing medications being ordered. Team might consider revoking CV. 02/11 scenario writer asked hx: pt vague, guarded. He says he went to [place] He says a [employer] [place] [employer] instructor told me I had to be out of here [[place]] he then said that a supervisor blueprinting and photocopy came up to him and told him. Patient says that he was living [place] the [place] in [place] and then ended up living in a tent. He says that he decided to come home on his own so he went to the airport... He then said that a ticket was bought for him by Nataliia and/or Red and/or Dustin, Nataliia being the woman Who says she is my mother.. And Dustin the man who says he is my father... Red is Nataliia's . Patient says that for years he has been concerned that Nataliia is not his biological mother; he says he has asked for a DNA test but it has not been done. Patient reports that Red picked him up from the airport, took him back to [place]; patient said I was walking around... And minding his own business and he does not know why he was brought to the hospital; he says that Dustin tricked him. Patient expressed consternation when scenario writer asked his belief about Ciara Awan being his mother... And asked if some agency had contacted this scenario writer about it. He said he was asking for DNA test regarding Ciara Awan but then said no he does not believe Ciara Awan is his mother end of story and did not want to talk about this anymore. Patient does not want to be in the hospital; discussed 3 day notice which he went and signed; does not feel the need or want any medication Patient denies any drug or alcohol use; denies any AVH; denies any SI or HI; denies any depression Patient gave permission for team to contact his family, Dustin, Red, Nataliia and gave phone numbers 02/12 Patient remains guarded; staff reports did not sleep much last night or the night before though patient says he has been sleeping fine. Merchandising Coordinator asked about activities while in [place]. Patient said he mostly just stayed in the chcf where he was staying and did not do any site-seeing or leave the vicinity much; said he sometimes helped load at a grocery store for food. Says he claimed asylum and there were government workers that would check on him, make sure he had food. Merchandising Coordinator tried to discuss details regarding coming back to the states but patient would not discuss. Says he is glad to be back in that it states; has nowhere else to go for now so plans to go back to Nataliia's house; otherwise he said he would like to move back down self. Patient with irritable edge saying he has no idea why he is hospitalized; scenario writer offered to explain but patient said he did not want scenario writer to because I do not think all like your response... Patient insisted that he was in a state hospital; did not seem to believe that scenario writer was a psychiatrist and kept referring to some numbers or statutes and improper evaluation. Eventually however he did ask again why he was hospitalized and as scenario writer started to explain patient said are we done and that he no longer wanted to talk and left the room Collateral report obtained from patient's mother (see below): 02/13 remains guarded, without any insight at all demanding discharge. Merchandising Coordinator discussed need for treatment including medication which patient refuses 02/14 refuses to engage; refused risperdal 02/15 refuses to engage; refused risperdal 02/16 Patient remains isolative, lying in bed on approach, awake/alert. Merchandising Coordinator again broaches topic of admission, trip to [place] and back however patient Says he does not want to talk about it or anything else 02/17 no change in presentation; continue treatment though patient refuses Risperdal 02/18 On approach patient polite and says what is up og... Merchandising Coordinator asked if patient was willing to talk about going to [place] and situation surrounding that decisions; patient said it was not important to talk about. Merchandising Coordinator explained again that court was coming up and that a dining server will decide whether or not patient is involuntarily committed and needs to take medication... Patient said that that is not going to happen, that he is not going to stay in the hospital or take medication...again inquired why he decided to go to [place] in the 1st place and patient said I was told to... But would not explain further other than to say he wanted to return to the [place] but was told it was an illegal deportation 1A but said this was in the past and not relevant. He asked who scenario writer was and scenario writer reminded him name, title..and pt said you told me you were not a doctor.. But when scenario writer explained to the contrary, patient insisted otherwise. Conversation ended -staff reports no ADL's 02/19 no change in presentation Impression: Patient remains at risk for not being able to take care himself in the community and harm coming from poor judgment as he is suffering from paranoid delusions and is without any insight at all. Patient's delusional thinking resulted in him becoming a missing person in a foreign country. He is only backing in the states because delegates in the [place] found patient (from mother filing missing person report there) and deported him back to [facility]. Without medication patient will remain unable to take care of himself in the community. Filed for involuntary commitment Plan: 3 day; will file for involuntary commitment Q 15 minute checks continue Risperdal 1mg BID; pt refuses Patient has given permission for team to contact family for collateral Collateral: -dx w/ bipolar as child and on meds from 4 years old until 17 yo mother reports that her around patient living in [place]; patient called his mother and said people after him, saying he's a pediophile, that someone has a gun... Saying i need to leave [place]. Mom went down to get and brought him back home. However once he was home he called the police and said his mom was poisoning him w/ food and police showed up...went for psych admission and was dx with delusiuinal paranoanoia; patient did not take medications post discharge or follow up and thus forward maintain that Nataliia was not his real mother. About a year and a half ago Patient told his mother he wanted to go to [place] to see whom he believed were his real parents, Ciara Awan and Prince Leblanc. Patient left; when he got there he claimed asylum and so was given some resources. There was some contact at 1st but soon there was no contact at all for about a year and patient's mother filed a missing person report with the [place] embassy there. Recently delegates from the [place] contacted her and deported him back to the [place] states. Her Red picked him up and brought him back home to [place]. While he was home the past weeks he was pacing the house, not sleeping and eating nonstop, eating literally all the groceries that she bought in 1 sitting, taking 5 showers a day and continually saying you are not my mother... Patient also expressed anger at her because his car was no longer. Since he was gone and not making car payments it was repossessed however he did not accept this explanation and accused her of scratching his car. Patient insisted that he had money in the bank though he had none. His father Dustin came to get him and took him to the hospital. Med trials (mother is not sure other than following: zoloft: tried to jump out of moving vehicle [place]: Severe Adverse effect Seroquel: Not sure Reason for continued inpatient stay Substantial Risk for: inability to function Time Spent With Patient Time: Total time managing care of this patient today ____ minutes.
[2025-02-19 20:00] VITALS: BP 115/65; PULSE 90; TEMP 36.8; O2SAT 97
[2025-02-20 08:04] VITALS: BP 128/62; PULSE 67; TEMP 36.5; O2SAT 96
--- NOTE | 2025-02-20 14:19 | HO.PSYCHPN ---
Subjective Subjective Date of Service: 02/20/25 Reason For Visit: Bipolar disorder, unspecified Subjective Notes: Section 7 Healthcare Proxy: No Guardianship: No Medical Problems Affecting Mental Status: No Interim History: Medical record and nursing notes reviewed; case discussed during rounds with team/nursing staff, and met with patient for supportive therapy/psychoeducation, as well as medication management. Patient slept for 7 hours last night. He did not take medication as scheduled which has been the same pattern. Met with him in his room why he is in bed sleeping, reported that he slept okay appetite is okay. Mood is fine . Denies anxiety/depression/anger issues. Denies safety concerns and denies voices. Medication Compliance: No Side effects from medications: No Attending Groups: No Review of Systems Acute medical concerns: No Medical Review of Systems: unchanged Review of Systems Review of Systems unremarkable Yes all other systems are reviewed and are negative Mental Status Exam Mental Status Exam Narrative: Pt is alert and oriented; behavior is guarded, superficially polite; marginally cooperative, calm; patient is not in distress; dressed in casual attire, unkempt; mood is described as fine and affect constricted; eye contact avoid at times; Speech is normal rate, volume and prosody and not pressured; psychomotor retardation present; thought process is organized and goal directed; Thought content is guarded; paranoid delusional thoughts; denies any SI/HI. Denies AVH though patient seems internally preoccupied. Patients insight and judgment impaired. Diagnostics Vital Signs (24Hr): Vital Signs - 24 hr 02/19/25 20:00 02/20/25 08:04 Temperature 98.2 F 97.7 F Pulse Rate 90 67 Blood Pressure 115/65 128/62 Pulse Oximetry 97 96 Oxygen Delivery Method Room Air Room Air BMI result Body Mass Index 31.1 Labs 02/09/25 07:18 Medications Medications Current Medications Acetaminophen (Acetaminophen 325 Mg Tablet) 650 mg PO Q6H PRN PRN Reason: Headache/Pain, Scale 1-10 Al Hydroxide/Mg Hydroxide (Magnesium Hydrox/Alum Hydrox 30 Ml Oral.Susp) 30 ml PO Q6H PRN PRN Reason: Heartburn/Nausea Hydroxyzine HCl (Hydroxyzine Hcl 25 Mg Tablet) 25 mg PO Q6H PRN PRN Reason: mild anxiety Magnesium Hydroxide (Milk Of Magnesia 30 Ml Oral.Susp) 30 ml PO DAILY PRN PRN Reason: Constipation Nicotine Polacrilex (Nicotine Polacrilex 2 Mg Gum) 2 mg BUCCAL Q2H PRN PRN Reason: Nicotine Cravings Olanzapine (Olanzapine Odt 10 Mg Tab.Rapdis) 10 mg TRANSLINGU Q6H PRN PRN Reason: agitation Risperidone (Risperidone 1 Mg Tablet) 1 mg PO BID TRICIA Last Admin: 02/20/25 09:42 Dose: Not Given Trazodone HCl (Trazodone Hcl 50 Mg Tablet) 50 mg PO BEDTIME MRX1 PRN PRN Reason: Insomnia Allergies Allergies Allergy/AdvReac Type Severity Reaction Status Date / Time Penicillins Allergy Unknown Unknown Verified 02/08/25 01:52 lithium AdvReac Unknown Unknown Verified 02/08/25 01:52 Assessment & Plan Assessment & Plan (1) Psychosis: Status: Acute Code(s): F29 - Unspecified psychosis not due to a substance or known physiological condition Plan HPI: patient overall pretty guarded and evasive during interview today. Most of history based off documentation from [facility] in [place], for patient was transferred as a direct admission to [facility]. This paperwork included lots of collateral information from patient's mom. Overall this notes that patient was in the [place] for 2 years and [place] the states on [place]/19/20[place]. He had claimed asylum in the [place] and was staying in a hotel and had cut off all family contact for the best part of 18 months. Was reportedly removed from the [place] stay with his mom 1st., up all night, unusual beliefs and erratic behavior, always had his bags packed like he was going somewhere and then stayed with his father for a short period. does not believe his biological parents are his parents and calls him by the 1st name i.e. Dustin and Nataliia. Believes that Ciara Awan from the while family is his mother. They do note that mental state really decompensated after grandmother's passing in 2020 and grandfather approximately 6 months later. 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 Two inpatient episodes when younger with suicidal ideation. Formulation: presents with clear delusional symptoms with unclear timeframe. No overt mood symptoms. No substance issues of note . [place] asylum [place] 2 years in the [place]. Delusional beliefs that Ciara Awan from the royal family is his biological mother. Declining all medications or treatment . Will continue to try and establish rapport with ongoing evaluation and treatment plan accordingly. 02/09:establish rapport and educate as much as patient will engage and treatment plan accorindgly. Educated ref 3 day notice process and [place] warning should they pursue same. 02/10: Still refusing medications being ordered. Team might consider revoking CV. 02/11 casualty underwriter asked hx: pt vague, guarded. He says he went to because i was illeg[place]aly deported...from [place]... He says a Federal advertising specialist told me I had to be out of here [[facility]] he then said that a newspaper copy editor came up to him and told him. Patient says that he was living in the in a nursing home and then ended up living in a tent. He says that he decided to come home on his own so he went to the airport... He then said that a ticket was bought for him by Nataliia and/or Red and/or Dustin, Nataliia being the woman Who says she is my mother.. And Dustin the man who says he is my father... Red is Nataliia's . Patient says that for years he has been concerned that Nataliia is not his biological mother; he says he has asked for a DNA test but it has not been done. Patient reports that Red picked him up from the airport, took him back to [place]; patient said I was walking around... And minding his own business and he does not know why he was brought to the hospital; he says that Dustin tricked him. Patient expressed consternation when casualty underwriter asked his belief about Ciara Awan being his mother... And asked if some agency had contacted this casualty underwriter about it. He said he was asking for DNA test regarding Ciara Awan but then said no he does not believe Ciara Awan is his mother end of story and did not want to talk about this anymore. Patient does not want to be in the hospital; discussed 3 day notice which he went and signed; does not feel the need or want any medication Patient denies any drug or alcohol use; denies any AVH; denies any SI or HI; denies any depression Patient gave permission for team to contact his family, Red Chan Melissa and gave phone numbers 02/12 Patient remains guarded; staff reports did not sleep much last night or the night before though patient says he has been sleeping fine. Associate Dean Of Women asked about activities while in [place]. Patient said he mostly just stayed in the nursing home where he was staying and did not do any site-seeing or leave the vicinity much; said he sometimes helped load at a grocery store for food. Says he claimed asylum and there were government workers that would check on him, make sure he had food. Associate Dean Of Women tried to discuss details regarding coming back to the [facility] but patient would not discuss. Says he is glad to be back in that it states; has nowhere else to go for now so plans to go back to Nataliia's house; otherwise he said he would like to move back down self. Patient with irritable edge saying he has no idea why he is hospitalized; casualty underwriter offered to explain but patient said he did not want casualty underwriter to because I do not think all like your response... Patient insisted that he was in a state hospital; did not seem to believe that casualty underwriter was a psychiatrist and kept referring to some numbers or statutes and improper evaluation. Eventually however he did ask again why he was hospitalized and as casualty underwriter started to explain patient said are we done and that he no longer wanted to talk and left the room Collateral report obtained from patient's mother (see below): 02/13 remains guarded, without any insight at all demanding discharge. Associate Dean Of Women discussed need for treatment including medication which patient refuses 02/14 refuses to engage; refused risperdal 02/15 refuses to engage; refused risperdal 02/16 Patient remains isolative, lying in bed on approach, awake/alert. Associate Dean Of Women again broaches topic of admission, trip to [place] and back however patient Says he does not want to talk about it or anything else 02/17 no change in presentation; continue treatment though patient refuses Risperdal 02/18 On approach patient polite and says what is up og... Associate Dean Of Women asked if patient was willing to talk about going to [place] and situation surrounding that decisions; patient said it was not important to talk about. Associate Dean Of Women explained again that court was coming up and that a director of business services will decide whether or not patient is involuntarily committed and needs to take medication... Patient said that that is not going to happen, that he is not going to stay in the hospital or take medication...again inquired why he decided to go to [place] in the 1st place and patient said I was told to... But would not explain further other than to say he wanted to return to the [place] but was told it was an illegal deportation 1A but said this was in the past and not relevant. He asked who casualty underwriter was and casualty underwriter reminded him name, title..and pt said you told me you were not a doctor.. But when casualty underwriter explained to the contrary, patient insisted otherwise. Conversation ended -staff reports no ADL's 02/19 no change in presentation Impression: Patient remains at risk for not being able to take care himself in the community and harm coming from poor judgment as he is suffering from paranoid delusions and is without any insight at all. Patient's delusional thinking resulted in him becoming a missing person in a foreign country. He is only backing in the states because delegates in the [place] found patient (from mother filing missing person report there) and deported him back to [facility]. Without medication patient will remain unable to take care of himself in the community. Filed for involuntary commitment 02/20/25: Inherited patient today, he is isolated himself in bed, food offer this morning in his room. Mood is fine . Denies SI/SIB/HI/AVH. Appears to be guarded, eye avoided. Appeared to be poor insight, and preoccupied, guarded affect. He has been refused medication included last night, but slept for 7 hours. Plan: 3 day; will file for involuntary commitment. Court schedule at 2 tomorrow on February 21. Q 15 minute checks continue Risperdal 1mg BID; pt refuses Patient has given permission for team to contact family for collateral Collateral: -dx w/ bipolar as child and on meds from 4 years old until 17 yo mother reports that her around patient living in [place]; patient called his mother and said people after him, saying he's a pediophile, that someone has a gun... Saying i need to leave [place]. Mom went down to get and brought him back home. However once he was home he called the police and said his mom was poisoning him w/ food and police showed up...went for psych admission and was dx with delusiuinal paranoanoia; patient did not take medications post discharge or follow up and thus forward maintain that Nataliia was not his real mother. About a year and a half ago Patient told his mother he wanted to go to [place] to see whom he believed were his real parents, Ciara Awan and Prince Leblanc. Patient left; when he got there he claimed asylum and so was given some resources. There was some contact at 1st but soon there was no contact at all for about a year and patient's mother filed a missing person report with the [place] embassy there. Recently delegates from the [place] contacted her and deported him back to the [place]. Her Red picked him up and brought him back home to [place]. While he was home the past weeks he was pacing the house, not sleeping and eating nonstop, eating literally all the groceries that she bought in 1 sitting, taking 5 showers a day and continually saying you are not my mother... Patient also expressed anger at her because his car was no longer. Since he was gone and not making car payments it was repossessed however he did not accept this explanation and accused her of scratching his car. Patient insisted that he had money in the bank though he had none. His father Dustin came to get him and took him to the hospital. Med trials (mother is not sure other than following: zoloft: tried to jump out of moving vehicle [place]: Severe Adverse effect Seroquel: Not sure Patient educated on: medication risk/benefits and therapeutic strategies Informed Consent: further education needed Reason for continued inpatient stay Substantial Risk for: med/psych decompensation Time Spent With Patient Time: Total time managing care of this patient today ____ minutes.
--- NOTE | 2025-02-20 22:32 | PC.NURSE ---
Pt refused HS Risperidone @2100
[2025-02-21 08:00] VITALS: BP 139/77; PULSE 82; RESP 16; O2SAT 98
[2025-02-21 20:00] VITALS: BP 103/54; PULSE 88; RESP 16; TEMP 36.8; O2SAT 97
--- NOTE | 2025-02-21 23:42 | HO.PSYCHPN ---
Subjective Subjective Date of Service: 02/21/25 Reason For Visit: Bipolar disorder, unspecified Interim History: met with patient; discussed with team; attended civil commitment hearing no change in presentation discussed delay in decision with patient who understands Mental Status Exam Mental Status Exam Narrative: Pt is alert and oriented; behavior is guarded, superficially polite; marginally cooperative, calm; patient is not in distress; dressed in casual attire, unkempt; mood is described as fine and affect constricted; eye contact avoid at times; Speech is normal rate, volume and prosody and not pressured; psychomotor retardation present; thought process is organized and goal directed; Thought content is guarded; paranoid delusional thoughts; denies any SI/HI. Denies AVH though patient seems internally preoccupied. Patients insight and judgment impaired. Diagnostics Vital Signs (24Hr): Vital Signs - 24 hr 02/21/25 08:00 02/21/25 20:00 Temperature 98.2 F Pulse Rate 82 88 Respiratory Rate 16 16 Blood Pressure 139/77 103/54 L Pulse Oximetry 98 97 Oxygen Delivery Method Room Air BMI result Body Mass Index 31.1 Labs 02/09/25 07:18 Medications Medications Current Medications Acetaminophen (Acetaminophen 325 Mg Tablet) 650 mg PO Q6H PRN PRN Reason: Headache/Pain, Scale 1-10 Al Hydroxide/Mg Hydroxide (Magnesium Hydrox/Alum Hydrox 30 Ml Oral.Susp) 30 ml PO Q6H PRN PRN Reason: Heartburn/Nausea Hydroxyzine HCl (Hydroxyzine Hcl 25 Mg Tablet) 25 mg PO Q6H PRN PRN Reason: mild anxiety Magnesium Hydroxide (Milk Of Magnesia 30 Ml Oral.Susp) 30 ml PO DAILY PRN PRN Reason: Constipation Nicotine Polacrilex (Nicotine Polacrilex 2 Mg Gum) 2 mg BUCCAL Q2H PRN PRN Reason: Nicotine Cravings Olanzapine (Olanzapine Odt 10 Mg Tab.Rapdis) 10 mg TRANSLINGU Q6H PRN PRN Reason: agitation Risperidone (Risperidone 1 Mg Tablet) 1 mg PO BID TRICIA Last Admin: 02/21/25 21:41 Dose: Not Given Trazodone HCl (Trazodone Hcl 50 Mg Tablet) 50 mg PO BEDTIME MRX1 PRN PRN Reason: Insomnia Allergies Allergies Allergy/AdvReac Type Severity Reaction Status Date / Time Penicillins Allergy Unknown Unknown Verified 02/08/25 01:52 lithium AdvReac Unknown Unknown Verified 02/08/25 01:52 Assessment & Plan Assessment & Plan (1) Psychosis: Status: Acute Code(s): F29 - Unspecified psychosis not due to a substance or known physiological condition Plan HPI: patient overall pretty guarded and evasive during interview today. Most of history based off documentation from [facility] in [place], for patient was transferred as a direct admission to [facility]. This paperwork included lots of collateral information from patient's mom. Overall this notes that patient was in the [place] for 2 years and [place] to the states on 01/19/2025. He had claimed asylum in the [place] and was staying in a hotel and had cut off all family contact for the best part of 18 months. Was reportedly removed from the [place] stay with his mom 1st., up all night, unusual beliefs and erratic behavior, always had his bags packed like he was going somewhere and then stayed with his father for a short period. does not believe his biological parents are his parents and calls him by the 1st name i.e. Dustin and Nataliia. Believes that Ciara Awan from the while family is his mother. They do note that mental state really decompensated after grandmother's passing in 2020 and grandfather approximately 6 months later. 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 Two inpatient episodes when younger with suicidal ideation. Formulation: presents with clear delusional symptoms with unclear timeframe. No overt mood symptoms. No substance issues of note . [place] asylum [place] 2 years in the [place]. Delusional beliefs that Ciara Awan from the royal family is his biological mother. Declining all medications or treatment . Will continue to try and establish rapport with ongoing evaluation and treatment plan accordingly. 02/09:establish rapport and educate as much as patient will engage and treatment plan accorindgly. Educated ref 3 day notice process and [place] warning should they pursue same. 02/10: Still refusing medications being ordered. Team might consider revoking CV. 02/11 automatic typewriter inspector asked hx: pt vague, guarded. He says he went to because i was illeglaly [place]...from [place]... He says a Federal salvage inspector told me I had to be out of here [[place]] he then said that a multi mission helicopter aircrewman came up to him and told him. Patient says that he was living [place] the [place] in a [place] and then ended up living in a tent. He says that he decided to come home on his own so he went to the airport... He then said that a ticket was bought for him by Nataliia and/or Red and/or Dustin, Nataliia being the woman Who says she is my mother.. And Dustin the man who says he is my father... Red is Nataliia's . Patient says that for years he has been concerned that Nataliia is not his biological mother; he says he has asked for a DNA test but it has not been done. Patient reports that Red picked him up from the airport, took him back to [place]; patient said I was walking around... And minding his own business and he does not know why he was brought to the hospital; he says that Dustin tricked him. Patient expressed consternation when automatic typewriter inspector asked his belief about Ciara Awan being his mother... And asked if some agency had contacted this automatic typewriter inspector about it. He said he was asking for DNA test regarding Ciara Awan but then said no he does not believe Ciara Awan is his mother end of story and did not want to talk about this anymore. Patient does not want to be in the hospital; discussed 3 day notice which he went and signed; does not feel the need or want any medication Patient denies any drug or alcohol use; denies any AVH; denies any SI or HI; denies any depression Patient gave permission for team to contact his family, Dustin, Red, Nataliia and gave phone numbers 02/12 Patient remains guarded; staff reports did not sleep much last night or the night before though patient says he has been sleeping fine. Revenue Specialist asked about activities while in [place]. Patient said he mostly just stayed in the fdc where he was staying and did not do any site-seeing or leave the vicinity much; said he sometimes helped load at a grocery store for food. Says he claimed asylum and there were government workers that would check on him, make sure he had food. Revenue Specialist tried to discuss details regarding coming back to the states but patient would not discuss. Says he is glad to be back in that it states; has nowhere else to go for now so plans to go back to Nataliia's house; otherwise he said he would like to move back down self. Patient with irritable edge saying he has no idea why he is hospitalized; automatic typewriter inspector offered to explain but patient said he did not want automatic typewriter inspector to because I do not think all like your response... Patient insisted that he was in a state hospital; did not seem to believe that automatic typewriter inspector was a psychiatrist and kept referring to some numbers or statutes and improper evaluation. Eventually however he did ask again why he was hospitalized and as automatic typewriter inspector started to explain patient said are we done and that he no longer wanted to talk and left the room Collateral report obtained from patient's mother (see below): 02/13 remains guarded, without any insight at all demanding discharge. Revenue Specialist discussed need for treatment including medication which patient refuses 02/14 refuses to engage; refused risperdal 02/15 refuses to engage; refused risperdal 02/16 Patient remains isolative, lying in bed on approach, awake/alert. Revenue Specialist again broaches topic of admission, trip to [place] and back however patient Says he does not want to talk about it or anything else 02/17 no change in presentation; continue treatment though patient refuses Risperdal 02/18 On approach patient polite and says what is up og... Revenue Specialist asked if patient was willing to talk about going to [facility] and situation surrounding that decisions; patient said it was not important to talk about. Revenue Specialist explained again that court was coming up and that a ux developer designer will decide whether or not patient is involuntarily committed and needs to take medication... Patient said that that is not going to happen, that he is not going to stay in the hospital or take medication...again inquired why he decided to go to [facility] in the [place]st place and patient said I was told to... But would not explain further other than to say he wanted to return to the [place] but was told it was an illegal deportation 1A but said this was in the past and not relevant. He asked who automatic typewriter inspector was and automatic typewriter inspector reminded him name, title..and pt said you told me you were not a doctor.. But when automatic typewriter inspector explained to the contrary, patient insisted otherwise. Conversation ended -staff reports no ADL's 02/19 no change in presentation Impression: Patient remains at risk for not being able to take care himself in the community and harm coming from poor judgment as he is suffering from paranoid delusions and is without any insight at all. Patient's delusional thinking resulted in him becoming a missing person in a foreign country. He is only backing in the states because delegates in the [place] found patient (from mother filing missing person report there) and deported him back to [facility]. Without medication patient will remain unable to take care of himself in the community. Filed for involuntary commitment 02/20/25: Inherited patient today, he is isolated himself in bed, food offer this morning in his room. Mood is fine . Denies SI/SIB/HI/AVH. Appears to be guarded, eye avoided. Appeared to be poor insight, and preoccupied, guarded affect. He has been refused medication included last night, but slept for 7 hours. 02/21 civil commitment hearing; decision still pending Plan: 3 day; will file for involuntary commitment. Court schedule at 2 tomorrow on February 21. Q 15 minute checks continue Risperdal 1mg BID; pt refuses Patient has given permission for team to contact family for collateral Collateral: -dx w/ bipolar as child and on meds from 4 years old until 17 yo mother reports that her around patient living in [place]; patient called his mother and said people after him, saying he's a pediophile, that someone has a gun... Saying i need to leave [place]. Mom went down to get and brought him back home. However once he was home he called the police and said his mom was poisoning him w/ food and police showed up...went for psych admission and was dx with delusiuinal paranoanoia; patient did not take medications post discharge or follow up and thus forward maintain that Nataliia was not his real mother. About a year and a half ago Patient told his mother he wanted to go to [place] to see whom he believed were his real parents, Ciaradean Awan and Ronak Benji. Patient left; when he got there he claimed asylum and so was given some resources. There was some contact at 1st but soon there was no contact at all for about a year and patient's mother filed a missing person report with the [place] embassy there. Recently delegates from the [place] contacted her and [place]. Her Red picked him up and brought him back home to [place]. While he was home the past weeks he was pacing the house, not sleeping and eating nonstop, eating literally all the groceries that she bought in 1 sitting, taking 5 showers a day and continually saying you are not my mother... Patient also expressed anger at her because his car was no longer. Since he was gone and not making car payments it was repossessed however he did not accept this explanation and accused her of scratching his car. Patient insisted that he had money in the bank though he had none. His father Dustin came to get him and took him to the hospital. Med trials (mother is not sure other than following: zoloft: tried to jump out of moving vehicle [place]: Severe Adverse effect Seroquel: Not sure Patient educated on: diagnosis Informed Consent: understands, does not understand and further education needed Reason for continued inpatient stay Substantial Risk for: inability to function Time Spent With Patient Time: Total time managing care of this patient today ____ minutes.
[2025-02-22 08:00] VITALS: BP 107/80; PULSE 68; RESP 16; O2SAT 97
--- NOTE | 2025-02-22 13:29 | PC.NURSE ---
Pt refused AM Risperidone. Provider Jose Luis Rodriguez notified.
--- NOTE | 2025-02-22 16:37 | HO.PSYCHPN ---
Subjective Subjective Date of Service: 02/22/25 Reason For Visit: Bipolar disorder, unspecified Interim History: met with patient; discussed with team briefly talked about plans for either discharge or staying no change in presentation Mental Status Exam Mental Status Exam Narrative: Pt is alert and oriented; behavior is guarded, superficially polite; marginally cooperative, calm; patient is not in distress; dressed in casual attire, unkempt; mood is described as fine and affect constricted; eye contact avoid at times; Speech is normal rate, volume and prosody and not pressured; psychomotor retardation present; thought process is organized and goal directed; Thought content is guarded; paranoid delusional thoughts; denies any SI/HI. Denies AVH though patient seems internally preoccupied. Patients insight and judgment impaired. Diagnostics Vital Signs (24Hr): Vital Signs - 24 hr 02/21/25 20:00 02/22/25 08:00 Temperature 98.2 F Pulse Rate 88 68 Respiratory Rate 16 16 Blood Pressure 103/54 L 107/80 Pulse Oximetry 97 97 Oxygen Delivery Method Room Air Room Air BMI result Body Mass Index 31.1 Labs 02/09/25 07:18 Medications Medications Current Medications Acetaminophen (Acetaminophen 325 Mg Tablet) 650 mg PO Q6H PRN PRN Reason: Headache/Pain, Scale 1-10 Al Hydroxide/Mg Hydroxide (Magnesium Hydrox/Alum Hydrox 30 Ml Oral.Susp) 30 ml PO Q6H PRN PRN Reason: Heartburn/Nausea Hydroxyzine HCl (Hydroxyzine Hcl 25 Mg Tablet) 25 mg PO Q6H PRN PRN Reason: mild anxiety Magnesium Hydroxide (Milk Of Magnesia 30 Ml Oral.Susp) 30 ml PO DAILY PRN PRN Reason: Constipation Nicotine Polacrilex (Nicotine Polacrilex 2 Mg Gum) 2 mg BUCCAL Q2H PRN PRN Reason: Nicotine Cravings Olanzapine (Olanzapine Odt 10 Mg Tab.Rapdis) 10 mg TRANSLINGU Q6H PRN PRN Reason: agitation Risperidone (Risperidone 1 Mg Tablet) 1 mg PO BID TRICIA Last Admin: 02/22/25 09:26 Dose: Not Given Trazodone HCl (Trazodone Hcl 50 Mg Tablet) 50 mg PO BEDTIME MRX1 PRN PRN Reason: Insomnia Allergies Allergies Allergy/AdvReac Type Severity Reaction Status Date / Time Penicillins Allergy Unknown Unknown Verified 02/08/25 01:52 lithium AdvReac Unknown Unknown Verified 02/08/25 01:52 Assessment & Plan Assessment & Plan (1) Psychosis: Status: Acute Code(s): F29 - Unspecified psychosis not due to a substance or known physiological condition Plan HPI: patient overall pretty guarded and evasive during interview today. Most of history based off documentation from [facility] ED in [place], for patient was transferred as a direct admission to [facility]. This paperwork included lots of collateral information from patient's mom. Overall this notes that patient was in the [place] for 2 years and [place] the states on 01/19/2025. He had claimed asylum in the [place] and was staying in a hotel and had cut off all family contact for the best part of 18 months. Was reportedly removed from the [place] stay with his mom 1st., up all night, unusual beliefs and erratic behavior, always had his bags packed like he was going somewhere and then stayed with his father for a short period. does not believe his biological parents are his parents and calls him by the 1st name i.e. Dustin and Nataliia. Believes that Ciara Awan from the while family is his mother. They do note that mental state really decompensated after grandmother's passing in 2020 and grandfather approximately 6 months later. 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 Two inpatient episodes when younger with suicidal ideation. Formulation: presents with clear delusional symptoms with unclear timeframe. No overt mood symptoms. No substance issues of note . [place] asylum [place] 2 years in the [place]. Delusional beliefs that Ciara Awan from the royal family is his biological mother. Declining all medications or treatment . Will continue to try and establish rapport with ongoing evaluation and treatment plan accordingly. 02/09:establish rapport and educate as much as patient will engage and treatment plan accorindgly. Educated ref 3 day notice process and [place] warning should they pursue same. 02/10: Still refusing medications being ordered. Team might consider revoking CV. 02/11 credit underwriter asked hx: pt vague, guarded. He says he went to because i was illeglaly [place]...from [place]... He says a Federal geoscientist told me I had to be out of here [[place]] he then said that a copra processor came up to him and told him. Patient says that he was living [place] in a group home and then ended up living in a tent. He says that he decided to come home on his own so he went to the airport... He then said that a ticket was bought for him by Nataliia and/or Red and/or Dustin, Nataliia being the woman Who says she is my mother.. And Dustin the man who says he is my father... Red is Nataliia's . Patient says that for years he has been concerned that Nataliia is not his biological mother; he says he has asked for a DNA test but it has not been done. Patient reports that Red picked him up from the airport, took him back to [place]; patient said I was walking around... And minding his own business and he does not know why he was brought to the hospital; he says that Dustin tricked him. Patient expressed consternation when credit underwriter asked his belief about Ciara Awan being his mother... And asked if some agency had contacted this credit underwriter about it. He said he was asking for DNA test regarding Ciara Awan but then said no he does not believe Ciara Awan is his mother end of story and did not want to talk about this anymore. Patient does not want to be in the hospital; discussed 3 day notice which he went and signed; does not feel the need or want any medication Patient denies any drug or alcohol use; denies any AVH; denies any SI or HI; denies any depression Patient gave permission for team to contact his family, Dustin, Red, Nataliia and gave phone numbers 02/12 Patient remains guarded; staff reports did not sleep much last night or the night before though patient says he has been sleeping fine. Division Traffic Superintendent asked about activities while in [place]. Patient said he mostly just stayed in the group home where he was staying and did not do any site-seeing or leave the vicinity much; said he sometimes helped load at a grocery store for food. Says he claimed asylum and there were government workers that would check on him, make sure he had food. Division Traffic Superintendent tried to discuss details regarding coming back to the states but patient would not discuss. Says he is glad to be back in that it states; has nowhere else to go for now so plans to go back to Nataliia's house; otherwise he said he would like to move back down self. Patient with irritable edge saying he has no idea why he is hospitalized; credit underwriter offered to explain but patient said he did not want credit underwriter to because I do not think all like your response... Patient insisted that he was in a state hospital; did not seem to believe that credit underwriter was a psychiatrist and kept referring to some numbers or statutes and improper evaluation. Eventually however he did ask again why he was hospitalized and as credit underwriter started to explain patient said are we done and that he no longer wanted to talk and left the room Collateral report obtained from patient's mother (see below): 02/13 remains guarded, without any insight at all demanding discharge. Division Traffic Superintendent discussed need for treatment including medication which patient refuses 02/14 refuses to engage; refused risperdal 02/15 refuses to engage; refused risperdal 02/16 Patient remains isolative, lying in bed on approach, awake/alert. Division Traffic Superintendent again broaches topic of admission, trip to [place] and back however patient Says he does not want to talk about it or anything else 02/17 no change in presentation; continue treatment though patient refuses Risperdal 02/18 On approach patient polite and says what is up og... Division Traffic Superintendent asked if patient was willing to talk about going to [place] and situation surrounding that decisions; patient said it was not important to talk about. Division Traffic Superintendent explained again that court was coming up and that a tar heater operator will decide whether or not patient is involuntarily committed and needs to take medication... Patient said that that is not going to happen, that he is not going to stay in the hospital or take medication...again inquired why he decided to go to [place] in the 1st place and patient said I was told to... But would not explain further other than to say he wanted to return to the [place] but was told it was an illegal deportation 1A but said this was in the past and not relevant. He asked who credit underwriter was and credit underwriter reminded him name, title..and pt said you told me you were not a doctor.. But when credit underwriter explained to the contrary, patient insisted otherwise. Conversation ended -staff reports no ADL's 02/19 no change in presentation Impression: Patient remains at risk for not being able to take care himself in the community and harm coming from poor judgment as he is suffering from paranoid delusions and is without any insight at all. Patient's delusional thinking resulted in him becoming a missing person in a foreign country. He is only backing in the states because delegates in the [place] found patient (from mother filing missing person report there) and deported him back to [facility]. Without medication patient will remain unable to take care of himself in the community. Filed for involuntary commitment 02/20/25: Inherited patient today, he is isolated himself in bed, food offer this morning in his room. Mood is fine . Denies SI/SIB/HI/AVH. Appears to be guarded, eye avoided. Appeared to be poor insight, and preoccupied, guarded affect. He has been refused medication included last night, but slept for 7 hours. 02/21 civil commitment hearing; decision still pending Plan: 3 day; will file for involuntary commitment. Court schedule at 2 tomorrow on February 21. Q 15 minute checks continue Risperdal 1mg BID; pt refuses Patient has given permission for team to contact family for collateral Collateral: -dx w/ bipolar as child and on meds from 4 years old until 17 yo mother reports that her around patient living in [place]; patient called his mother and said people after him, saying he's a pediophile, that someone has a gun... Saying i need to leave [place]. Mom went down to get and brought him back home. However once he was home he called the police and said his mom was poisoning him w/ food and police showed up...went for psych admission and was dx with delusiuinal paranoanoia; patient did not take medications post discharge or follow up and thus forward maintain that Nataliia was not his real mother. About a year and a half ago Patient told his mother he wanted to go to [place] to see whom he believed were his real parents, Ciara Awan and Prince Leblanc. Patient left; when he got there he claimed asylum and so was given some resources. There was some contact at 1st but soon there was no contact at all for about a year and patient's mother filed a missing person report with the [place] embassy there. Recently delegates from the [place] contacted her and [place]. Her Red picked him up and brought him back home to [place]. While he was home the past weeks he was pacing the house, not sleeping and eating nonstop, eating literally all the groceries that she bought in 1 sitting, taking 5 showers a day and continually saying you are not my mother... Patient also expressed anger at her because his car was no longer. Since he was gone and not making car payments it was repossessed however he did not accept this explanation and accused her of scratching his car. Patient insisted that he had money in the bank though he had none. His father Dustin came to get him and took him to the hospital. Med trials (mother is not sure other than following: zoloft: tried to jump out of moving vehicle Rainbow: Severe Adverse effect Seroquel: Not sure Patient educated on: diagnosis Informed Consent: understands, does not understand and further education needed Reason for continued inpatient stay Substantial Risk for: inability to function Time Spent With Patient Time: Total time managing care of this patient today ____ minutes.
--- NOTE | 2025-04-10 17:24 | P.DS_ITS ---
DS: Providers Provider Date of Service: 02/22/25 Date of admission: 02/08/25 00:58 Date of discharge: 02/22/25 Primary care physician: None Physician Attending physician on admission: Hermes Becerra Consults: 02/08/25 01:52 Consult to Hospitalist Routine Comment: Consulting Provider: [facility] Reason For Exam: medical H&P Attending physician on discharge: Jose Luis Montes De Oca DS: Diagnosis Discharge Diagnosis (1) Psychosis: Status: Acute DS: Medications Discharge Medications Home Medications: Home Medications ?Medication ?Instructions ?Recorded ?Confirmed No Known Home Meds 02/08/25 02/08/25 Mental Status Exam Mental Status Exam Narrative: Pt is alert and oriented; behavior is guarded, superficially polite; marginally cooperative, calm; patient is not in distress; dressed in casual attire, unkempt; mood is described as fine and affect constricted; eye contact avoid at times; Speech is normal rate, volume and prosody and not pressured; psychomotor retardation present; thought process is organized and goal directed; Thought content is guarded; paranoid delusional thoughts; denies any SI/HI. Denies AVH though patient seems internally preoccupied. Patients insight and judgment impaired. DS: Summary Hospital Course Hospital Course: HPI: patient overall pretty guarded and evasive during interview today. Most of history based off documentation from [facility] ED in [place], for patient was transferred as a direct admission to [facility]. This paperwork included lots of collateral information from patient's mom. Overall this notes that patient was in the [place] for 2 years and returned to the states on 01/19/2025. He had claimed asylum in the [place] and was staying in a hotel and had cut off all family contact for the best part of 18 months. Was reportedly removed from the [place] stay with his mom 1st., up all night, unusual beliefs and erratic behavior, always had his bags packed like he was going somewhere and then stayed with his father for a short period. does not believe his biological parents are his parents and calls him by the 1st name i.e. Dustin and Nataliia. Believes that Ciara Awan from the while family is his mother. They do note that mental state really decompensated after grandmother's passing in 2020 and grandfather approximately 6 months later. 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 Two inpatient episodes when younger with suicidal ideation. Collateral: -dx w/ bipolar as child and on meds from 4 years old until 17 yo mother reports that her around patient living in [place]; patient called his mother and said people after him, saying he's a pediophile, that someone has a gun... Saying i need to leave [place]. Mom went down to get and brought him back home. However once he was home he called the police and said his mom was poisoning him w/ food and police showed up...went for psych admission and was dx with delusiuinal paranoanoia; patient did not take medications post discharge or follow up and thus forward maintain that Nataliia was not his real mother. About a year and a half ago Patient told his mother he wanted to go to the [place] to see whom he believed were his real parents, Ciara Awan and Prince Leblanc. Patient left; when he got there he claimed asylum and so was given some resources. There was some contact at [facility] but soon there was no contact at all for about a year and patient's mother filed a missing person report with the [place] embassy there. Recently delegates from the [place] contacted her and deported him back to the [place]. Her Red picked him up and brought him back home to [place]. While he was home the past weeks he was pacing the house, not sleeping and eating nonstop, eating literally all the groceries that she bought in 1 sitting, taking 5 showers a day and continually saying you are not my mother... Patient also expressed anger at her because his car was no longer. Since he was gone and not making car payments it was repossessed however he did not accept this explanation and accused her of scratching his car. Patient insisted that he had money in the bank though he had none. His father Dustin came to get him and took him to the hospital. Med trials (mother is not sure other than following: zoloft: tried to jump out of moving vehicle Whippany: Severe Adverse effect Seroquel: Not sure Hospital course: presents with clear delusional symptoms with unclear timeframe. No overt mood symptoms. No substance issues of note . [place] 2 years in the [place]. Delusional beliefs that Ciara Awan from the [place] is his biological mother. Declining all medications or treatment . Will continue to try and establish rapport with ongoing evaluation and treatment plan accordingly. 02/09:establish rapport and educate as much as patient will engage and treatment plan accorindgly. Educated ref 3 day notice process and [place] warning should they pursue same. 02/10: Still refusing medications being ordered. Team might consider revoking CV. 02/11 typewriter assembly and parts inspector asked hx: pt vague, guarded. He says he went to because i was illeg[place]aly deported...from [place]... He says a Federal venue manager told me I had to be out of here [[facility]] he then said that a cops came up to him and told him. Patient says that he was living in the in a senior care and then ended up living in a tent. He says that he decided to come home on his own so he went to the airport... He then said that a ticket was bought for him by Nataliia and/or Red and/or Dustin, Nataliia being the woman Who says she is my mother.. And Dustin the man who says he is my father... Red is Nataliia's . Patient says that for years he has been concerned that Nataliia is not his biological mother; he says he has asked for a DNA test but it has not been done. Patient reports that Red picked him up from the airport, took him back to [place]; patient said I was walking around... And minding his own business and he does not know why he was brought to the hospital; he says that Dustin tricked him. Patient expressed consternation when typewriter assembly and parts inspector asked his belief about Ciara Brumfield on being his mother... And asked if some agency had contacted this typewriter assembly and parts inspector about it. He said he was asking for DNA test regarding Ciara Awan but then said no he does not believe Ciara Awan is his mother end of story and did not want to talk about this anymore. Patient does not want to be in the hospital; discussed 3 day notice which he went and signed; does not feel the need or want any medication Patient denies any drug or alcohol use; denies any AVH; denies any SI or HI; denies any depression Patient gave permission for team to contact his family, Red Chan, Nataliia and gave phone numbers 02/12 Patient remains guarded; staff reports did not sleep much last night or the night before though patient says he has been sleeping fine. Color Television Console Monitor asked about activities while in [place]. Patient said he mostly just stayed in the senior care where he was staying and did not do any site-seeing or leave the vicinity much; said he sometimes helped load at a grocery store for food. Says he claimed asylum and there were government workers that would check on him, make sure he had food. Color Television Console Monitor tried to discuss details regarding coming back to the states but patient would not discuss. Says he is glad to be back in that it states; has nowhere else to go for now so plans to go back to Nataliia's house; otherwise he said he would like to move back down self. Patient with irritable edge saying he has no idea why he is hospitalized; typewriter assembly and parts inspector offered to explain but patient said he did not want typewriter assembly and parts inspector to because I do not think all like your response... Patient insisted that he was in a state hospital; did not seem to believe that typewriter assembly and parts inspector was a psychiatrist and kept referring to some numbers or statutes and improper evaluation. Eventually however he did ask again why he was hospitalized and as typewriter assembly and parts inspector started to explain patient said are we done and that he no longer wanted to talk and left the room Collateral report obtained from patient's mother (see below): 02/13 remains guarded, without any insight at all demanding discharge. Color Television Console Monitor discussed need for treatment including medication which patient refuses 02/16 Patient remains isolative, lying in bed on approach, awake/alert. Color Television Console Monitor again broaches topic of admission, trip to [place] and back however patient Says he does not want to talk about it or anything else 02/17 no change in presentation; continue treatment though patient refuses Risperdal 02/18 On approach patient polite and says what is up og... Color Television Console Monitor asked if patient was willing to talk about going to [place] and situation surrounding that decisions; patient said it was not important to talk about. Color Television Console Monitor explained again that court was coming up and that a small animal caretaker will decide whether or not patient is involuntarily committed and needs to take medication... Patient said that that is not going to happen, that he is not going to stay in the hospital or take medication...again inquired why he decided to go to [facility] in the 1st place and patient said I was told to... But would not explain further other than to say he wanted to return to the [place] but was told it was an illegal deportation 1A but said this was in the past and not relevant. He asked who typewriter assembly and parts inspector was and typewriter assembly and parts inspector reminded him name, title..and pt said you told me you were not a doctor.. But when typewriter assembly and parts inspector explained to the contrary, patient insisted otherwise. Conversation ended -staff reports no ADL's Impression: Patient remains at risk for not being able to take care himself in the community and harm coming from poor judgment as he is suffering from paranoid delusions and is without any insight at all. Patient's delusional thinking resulted in him becoming a missing person in a foreign country. He is only backing in the states because delegates in the [place] found patient (from mother filing missing person report there) and deported him back to [facility]. Without medication patient will remain unable to take care of hi mself in the community. Filed for involuntary commitment 02/20/25: he is isolated himself in bed, food offer this morning in his room. Mood is fine . Denies SI/SIB/HI/AVH. Appears to be guarded, eye avoided. Appeared to be poor insight, and preoccupied, guarded affect. He has been refused medication included last night, but slept for 7 hours. 02/21 civil commitment hearing; decision still pending 02/22 small animal caretaker ruled that patient does not meet inpatient level of care and civil commitment denied. Patient discharged home. -patient picked up by his father and plans to returned to his mother's Status at Discharge Functional status at discharge: independent ambulation Overall status at discharge: patient is not back to baseline Time Spent with Patient Time attestation: Total time managing care of this patient today __40__ minutes. Time spent: Greater than 30 minutes Specific discharge activities: Met with patient; discussed with team; charting Discharge Plan Discharge Anticipated Discharge Date/Time: 02/22/25 18:00 Patient Disposition: Home, Self-Care Discharge Diagnosis: Schizoaffective disorder Referrals: [facility] [Other] - 1 Week Referral Note: Patient may call agency to establish with them for outpatient therapy and psychiatric medication management services [facility] [Other] - 1 Week Referral Note: [facility] [Other] - 1 Week Referral Note: financial services technician organization that may be able to assist you in connecting with community resources [facility] [Other] - 1 Week Referral Note: Crisis services telephone number. Physician,None [Primary Care Provider, Medical] - 1 Week Discharge Medications: No Action No Known Home Meds Discharge Orders: Discharge Order (Routine); Ordered 02/22/25 Ordered By: Kandice Stuart Diet: Advance to usual diet Activity on Discharge: As tolerated Stand Alone Forms: Patient Portal Discharge page Print Language: Setswana Care Plan Goals: Mood and Behavioral Stabilization Health Concerns: Mood and Behavioral Stabilization Plan of Treatment: Pt is discharged today after a Section [address]. [address] has decided pt does not need to remain in the hospital. [facility] [place] notified today at 5pm Consider treatment and medication You are welcome to call/return if needed Assessment: Discharge per order of [facility] after filing of a Section 7. Discharge Date/Time: 02/22/25 19:40
== END 2025-02-22 19:40 | disposition home or self-care (01) | DRG 751 ==
PROVIDERS: Social Worker; Admitting Provider Psychiatry & Neurology Psychiatry; Visit Provider Psychiatry & Neurology Psychiatry
DX: F29 Unspecified psychosis not due to a substance or known physiological condition (principal); Z87.891 Personal history of nicotine dependence
CPT/HCPCS: 36415; 80053; 80061; 82607; 83036; 84443

== ENCOUNTER → 2025-02-08 00:58 | Outpatient (BNV) | payer OTHER, SELFPAY | PROVIDERS: Admitting Provider Psychiatry & Neurology Psychiatry; Visit Provider Psychiatry & Neurology Psychiatry | DX: F29 Unspecified psychosis not due to a substance or known physiological condition (principal) | CPT/HCPCS: 90792; 99231; 99232 ==

== ENCOUNTER → 2025-02-08 00:58 | Outpatient (BNV) | payer OTHER, SELFPAY | PROVIDERS: Admitting Provider Psychiatry & Neurology Psychiatry; Visit Provider Physician Assistant | DX: Z00.8 Encounter for other general examination (principal); E66.811 Obesity, class 1 | CPT/HCPCS: 99222 ==